=== PATIENT | female | born 1950 | race Caucasian/White ===

== ENCOUNTER 2018-08-18 07:52 | Inpatient (IN) ==
--- NOTE | 2018-07-17 14:06 | PAT Medication Instructions ---
Medication Instructions Date of Service July 17, 2018 Home Medications acetaminophen [Tylenol Extra 1,000 mg PO Q6H PRN albuterol sulfate 2 puff INHALATION Q6H PRN ascorbic acid (vitamin C) [Vitamin 500 mg PO UD fntmfdu-ayyhabean-desu 1 tab PO QAM cholecalciferol (vitamin D3) 1,000 unit PO UD diclofenac sodium 2 g TOPICAL QAM fluticasone propion-salmeterol 1 puff INHALATION Q12H PRN fluticasone propionate [Flonase 2 spray INTRANASAL DAILY PRN folic acid 0.4 mg PO QAM fosinopril 40 mg PO QAM glimepiride 0.5 mg PO QPM glimepiride 1 mg PO QAM indapamide 1.25 mg PO QAM metformin 500 - 1,000 mg PO BID [Hair,Skin and Nails] mv,Ca,min-iron cbxo-JW-nmjvvf tab PO QAM prednisone 5 mg PO QAM tetrahydrozoline [Visine] 1 drp OPHTHALMIC (EYE) TID PRN vitamin B complex 1 cap PO UD STOP taking 2 weeks before surgery (or as soon as possible if surgery is within 2 weeks) [Hair,Skin and Nails] mv,Ca,min-iron pbti-EJ-ciapth tab PO QAM DO NOT take the morning of surgery ascorbic acid (vitamin C) [Vitamin 500 mg PO UD vggzhqe-vxoropcyt-moix 1 tab PO QAM cholecalciferol (vitamin D3) 1,000 unit PO UD folic acid 0.4 mg PO QAM fosinopril 40 mg PO QAM glimepiride 1 mg PO QAM indapamide 1.25 mg PO QAM metformin 500 - 1,000 mg PO BID vitamin B complex 1 cap PO UD Take morning of surgery With a small sip of water, OTHERWISE NOTHING TO EAT OR DRINK AFTER MIDNIGHT: acetaminophen [Tylenol Extra 1,000 mg PO Q6H PRN (okay to take up to 4 hours prior to surgery if needed) albuterol sulfate 2 puff INHALATION Q6H PRN (use if needed; please bring with you to hospital day of surgery if possible) fluticasone propion-salmeterol 1 puff INHALATION Q12H PRN (if needed) fluticasone propionate [Flonase 2 spray INTRANASAL DAILY PRN (if needed) prednisone 5 mg PO QAM tetrahydrozoline [Visine] 1 drp OPHTHALMIC (EYE) TID PRN (if needed) Take evening before surgery acetaminophen [Tylenol Extra 1,000 mg PO Q6H PRN (if needed) albuterol sulfate 2 puff INHALATION Q6H PRN (if needed) fluticasone propion-salmeterol 1 puff INHALATION Q12H PRN (if needed) fluticasone propionate [Flonase 2 spray INTRANASAL DAILY PRN (if needed) glimepiride 0.5 mg PO QPM metformin 500 - 1,000 mg PO BID tetrahydrozoline [Visine] 1 drp OPHTHALMIC (EYE) TID PRN (if needed) Other Notes If you have any questions please call us at [phone] or [phone] or [phone] or [phone]
--- NOTE | 2018-07-20 07:49 | History & Physical Report ---
Date of Service July 20, 2018 Date of Surgery: 08-18-18 Assessment & Plan (1) Tricompartment osteoarthritis of right knee: Risks and benefits of procedure discussed in detail today, patient would like to proceed with a right total knee replacement at [facility] as scheduled. will obtain medical clearance prior to surgery as well as obtain PATs at [facility]. Will place on ASA 81mg po bid x 1 month post op, f/u 2 weeks post op for routine post-operative care and x-ray, sooner if having any problems. will make arrangements for HHPT at the time of discharge. At this point in time, has failed conservative measures and would like to proceed with surgical intervention. History of Present Illness Chief Complaint: right knee pain Primary Care Provider: Rosa Nj Ms Rodríguez is a 67 year old female who complains of right knee pain, presents for pre-op evaluation prior to a right total knee replacement. She presents with pain, crepitus and instability on the right side. She states that the symptoms have been chronic non-traumatic. Currently the patient states that the symptoms are moderate-severe. The pain is described as aching and sometimes sharp. The symptoms occur intermittently. She rates her current pain as 6/10 and worst is 8/10. The symptoms are aggravated by ascending stairs, descending stairs, daily activities, walking and repetitive activities. In addition to right knee pain the patient is also experiencing joint pain, instability and weakness. Patient is ambulating with a cane. she has had prior cortisone injection with minimal relief. she has also tried and failed prior visco series. Allergies Allergy/AdvReac Type Severity Reaction Status Date / Time Qtnlsju-Gbm-Owu Reductase Allergy Unknown MUSCLE Verified 07/15/18 15:27 Inhibitor ACHES Sulfa (Sulfonamide Allergy Unknown HIVES Verified 07/15/18 15:27 Antibiotics) Home Medications Home Medications Medication Instructions Recorded Confirmed Type acetaminophen [Tylenol Extra 1,000 mg PO Q6H PRN 07/15/18 07/15/18 History Strength] albuterol sulfate 2 puff INHALATION Q6H PRN 07/15/18 07/15/18 History ascorbic acid (vitamin C) [Vitamin 500 mg PO UD 07/15/18 07/15/18 History C] mxoofuw-vnrnizjru-yrkk 1 tab PO QAM 07/15/18 07/15/18 History cholecalciferol (vitamin D3) 1,000 unit PO UD 07/15/18 07/15/18 History [Vitamin D3] diclofenac sodium 2 g TOPICAL QAM 07/15/18 07/15/18 History fluticasone propion-salmeterol 1 puff INHALATION Q12H PRN 07/15/18 07/15/18 History [Advair Diskus] fluticasone propionate [Flonase 2 spray INTRANASAL DAILY PRN 07/15/18 07/15/18 History Allergy Relief] folic acid 0.4 mg PO QAM 07/15/18 07/15/18 History fosinopril 40 mg PO QAM 07/15/18 07/15/18 History glimepiride 0.5 mg PO QPM 07/15/18 07/15/18 History glimepiride 1 mg PO QAM 07/15/18 07/15/18 History indapamide 1.25 mg PO QAM 07/15/18 07/15/18 History metformin 500 - 1,000 mg PO BID 07/15/18 07/15/18 History mv,Ca,min-iron otti-OV-vlezng tab PO QAM 07/15/18 History [Hair,Skin and Nails] prednisone 5 mg PO QAM 07/15/18 07/15/18 History tetrahydrozoline [Visine] 1 drp OPHTHALMIC (EYE) TID PRN 07/15/18 07/15/18 History vitamin B complex 1 cap PO UD 07/15/18 07/15/18 History Past Med/Surg History Medical History Arthritis Asthma Chronic steroid use Diabetes mellitus, type 2 Diverticular disease GERD (gastroesophageal reflux disease) H/O Sjogren's disease Hyperlipidemia Hypertension Sleep apnea NO DEVICE Surgical History Fusion of spine LUMBAR History of appendectomy History of section History of total knee replacement LEFT Family History Father Family history of diabetes mellitus Social History Preferred Language: Paraguayan Communication Ability: Effective Watchguard Required: No Beliefs That Will Affect Care: None Current Living Situation: Spouse Other Information That Helps Us Care for You: No Feels Safe at Home: Yes Safety Concerns: Feels Safe At This Time Smoking Status: Never smoker Do You Dip or Chew Tobacco: No Second Hand Exposure: No Hx Alcohol Use: No Hx Substance Use: No Review of Systems Review of Systems: All systems reviewed & are unremarkable except as noted in HPI & below Constitutional: no fever, no chills and no sweats Respiratory: no cough and no dyspnea Cardiovascular: no chest pain, no dyspnea and no orthopnea Gastrointestinal: no abdominal pain, no nausea and no vomiting Musculoskeletal: as per Subjective / HPI Integumentary: no rash Physical Exam Physical Exam: Ht: 5ft 6in Wt: 81.65kg BP: 132/78 Pulse: 82 Constitutional: WD/WN, vitals as above no acute distress Respiratory: normal respiratory effort, lungs clear to auscultation no respiratory distress, no labored breathing and does not use accessory muscles Cardiovascular: RRR, no murmur, no edema Gastrointestinal (Abdomen): normal bowel sounds, soft, nontender, no hepatosplenomegaly Musculoskeletal: Right Knee Exam: Hilaria ambulates with a limp and is using a cane, overall valgus alignment, there is no atrophy or ecchymosis, mild effusion, tenderness greatest over her lateral compartment, negative patellar apprehension , mild crepitation with motion, Patella position neutral, zain's negative, Lori's - lateral positive, Lori's - medial positive, anterior drawer negative, valgus stress negative, varus stress negative, no extensor lag, pain with active range of motion, less pain with passive painful ROM, Range of motion 0/3/115. No pain with active/passive ROM of ankle. Lower extremity strength normal. Lower extremity neuro-vascular is normal Results & Data Diagnostic Findings Right Knee X-ray from August 2017 showing advanced degenerative changes to the right knee, narrowing of the lateral compartment and patello-femoral joint with advanced patellar spurring noted, overal valgus alignment. complete loss of joint space lateral compartment, bone on bone changes with subchondral sclerosis and osteophytes noted. no acute bony pathology noted, no loose bodies.
--- NOTE | 2018-07-20 11:51 | Anesthesiology Consultation ---
Date of Service July 20, 2018 Assessment & Plan (1) Encounter for pre-operative examination: - PCP: 08/13/18: "Patient is medically cleared for surgery." - Check BSG AM DOS Chart Review Chart Review: Acceptable Risk for Surgery and Patient seen in Pre Admission Testing Teaching & Discussion Pre-Anesthesia Teaching/Discussion Notes: Instructed NPO after midnight before surgery,except medications with 15 cc of water. Medication instructions provided according to the PAT guidelines. History Surgery Operation Date: 08/18/18 07:15 Proposed Procedures p Right Total Knee Arthroplasty - Major Borjas DO Height/Weight Height: 5 ft 6 in Weight: 83.2 kg Allergies Allergy/AdvReac Type Severity Reaction Status Date / Time Ygqlskn-Zbm-Zdz Reductase Allergy Unknown MUSCLE Verified 07/15/18 15:27 Inhibitor ACHES Sulfa (Sulfonamide Allergy Unknown HIVES Verified 07/15/18 15:27 Antibiotics) Medications Home Medications Medication Instructions Recorded Confirmed Last Taken acetaminophen [Tylenol Extra 1,000 mg PO Q6H PRN 07/15/18 07/15/18 Unknown Strength] albuterol sulfate 2 puff INHALATION Q6H PRN 07/15/18 07/15/18 Unknown ascorbic acid (vitamin C) [Vitamin 500 mg PO UD 07/15/18 07/15/18 Unknown C] yxmfoeq-qtmsulxli-rnqs 1 tab PO QAM 07/15/18 07/15/18 Unknown cholecalciferol (vitamin D3) 1,000 unit PO UD 07/15/18 07/15/18 Unknown [Vitamin D3] diclofenac sodium 2 g TOPICAL QAM 07/15/18 07/15/18 Unknown fluticasone propion-salmeterol 1 puff INHALATION Q12H PRN 07/15/18 07/15/18 U nknown [Advair Diskus] fluticasone propionate [Flonase 2 spray INTRANASAL DAILY PRN 07/15/18 07/15/18 Unknown Allergy Relief] folic acid 0.4 mg PO QAM 07/15/18 07/15/18 Unknown fosinopril 40 mg PO QAM 07/15/18 07/15/18 Unknown glimepiride 0.5 mg PO QPM 07/15/18 07/15/18 Unknown glimepiride 1 mg PO QAM 07/15/18 07/15/18 Unknown indapamide 1.25 mg PO QAM 07/15/18 07/15/18 Unknown metformin 500 - 1,000 mg PO BID 07/15/18 07/15/18 Unknown mv,Ca,min-iron lftf-QH-nwnilu tab PO QAM 07/15/18 Unknown [Hair,Skin and Nails] prednisone 5 mg PO QAM 07/15/18 07/15/18 Unknown tetrahydrozoline [Visine] 1 drp OPHTHALMIC (EYE) TID PRN 07/15/18 07/15/18 Unknown vitamin B complex 1 cap PO UD 07/15/18 07/15/18 Unknown Past Medical History Medical History Arthritis Asthma STABLE Diabetes mellitus, type 2 NIDDM Diverticular disease GERD (gastroesophageal reflux disease) CONTROLLED History of blood transfusion POST-OP LUMBAR SURGERY Hyperlipidemia Hypertension Sjogren's disease ON CHRONIC PREDNISONE 5MG DAILY* Sleep apnea NO DEVICE Exercise / Class Metabolic Activity II 4-5 Yardwork/Stairs/Walk up hill Past Family History Family History Father Family history of diabetes mellitus Past Surgical History Surgical History Fusion of spine LUMBAR History of appendectomy History of section History of total knee replacement LEFT TKA: 08/13/17: SAB AT L3-L4 + PNB Past Anesthesia History No Hx of Anesthesia Complications and No Family Hx of Anesthesia Complications History of PONV No Hx of PONV and Hx of Motion Sickness Social History Smoking Status: Never smoker Do You Dip or Chew Tobacco: No Hx Alcohol Use: No Hx Substance Use: No Review of Systems Patient denies chest pain, shortness of breath, cough, wheezing, palpitations. Physical Exam Vital Signs VITALS BP 116/75 P 87 TEMP 98.4 SP02 97%RA RESP 20 PHYSICAL Full neck and c-spine range of motion. Full TMJ range of motion. TMD 3 finger breaths Mallampati Score 2 Dentition: upper/lower partials Lungs: clear throughout to auscultation Cardiac: regular rate and rhythm, no murmurs noted Spine: normal Carotid arteries: negative bruit Extremities: no edema Testing Electrocardiogram Date: 07/20/18 Findings: + NSR @ (83) Chest X-Ray Date: 07/20/18 Findings: + NAD Moderate compression deformity T12 considered old. Laboratory Results 07/20/18 12:20 07/20/18 12:25 PT 10.1 Seconds (9.0-12.0) 07/20/18 12:20 INR 1.0 (0.9-1.1) 07/20/18 12:20 APTT 23.9 Seconds (21.0-31.0) 07/20/18 12:20 7.6 % (4.5-5.6) H 07/20/18 12:20 Yellow 07/20/18 12:20 Clear (Clear) 07/20/18 12:20 7.5 (4.5-7.5) 07/20/18 12:20 Ur Specific [place] 1.023 (1.000-1.030) 07/20/18 12:20 Negative (Negative) 07/20/18 12:20 Negative (Negative) 07/20/18 12:20 Negative (Negative) 07/20/18 12:20 Negative (Negative) 07/20/18 12:20 Ur Leukocyte Esterase Negative (Negative) 07/20/18 12:20 Blood Type A Negative 07/20/18 12:20 Antibody Screen NEGATIVE 07/20/18 12:20 Due to header error, following labs header labels were missin07/20/18 HGBA1C 7.6% (Surgeon made aware of elevated hgba1c/glucose.) UA negative
--- NOTE | 2018-07-20 12:50 | XRay Report ---
XR chest Pre-admission PA/Lat CLINICAL HISTORY: pat preoperative evaluation COMPARISON STUDY: No previous studies for comparison. FINDINGS: The bones soft tissues and hemidiaphragms are normal. The cardiomediastinal silhouette is n ormal. The lungs are clear. The pulmonary vasculature is normal. Moderate compression deformity T12 c onsidered old. IMPRESSION: Negative chest. The above report was generated using voice recognition software. It may contain grammatical, syntax or spelling errors. Electronically signed by: Yaya Jefferson M.D. 07/20/2018 12:48 PM
[2018-07-20 13:39] LABS: Basophils # (auto) 0.01 K/uL (0-0.2); Basophils % (auto) 0.2 %; Eosinophils # (auto) 0.02 K/uL (0-0.5); Eosinophils % (auto) 0.4 %; Hematocrit (blood only) 35.6 % (37-47); Hemoglobin 12.4 g/dL (12.0-16.0); Immature Granulocytes # (auto) 0.01 K/uL (0.00-0.02); Immature Granulocytes % (auto) 0.2 %; Lymphocytes % (auto) 17.8 %; Mean Corpuscular Hgb Conc 34.8 g/dL (32-36); Mean Corpuscular Volume 93.2 fL (80-100); Mean Platelet Volume 9.5 fL (7.4-10.4); Monocytes # (auto) 0.27 K/uL (0.11-0.59); Monocytes % (auto) 4.8 %; Neutrophils % (auto) 76.6 %; Platelet Count 213 K/uL (130-400); RDW Coefficient of Variation 13.8 % (11.5-14.5); RDW Standard Deviation 46.9 fL (36.4-46.3); Red Blood Count 3.82 M/uL (4.2-5.4); White Blood Count 5.61 K/uL (4.8-10.8)
[2018-07-20 13:49] LABS: Partial Thromboplastin Ratio 0.9; Partial Thromboplastin Time 23.9 Seconds (21.0-31.0); Prothrombin Time 10.1 Seconds (9.0-12.0)
[2018-07-20 13:54] LABS: Albumin Level 3.5 gm/dl (3.4-5.0); BUN Creatinine Ratio 21.1 (10-20); Creatinine Clr Calc Pharmacy 62.5 ml/min; Est GFR (African American) 71.8; Potassium 3.5 mmol/L (3.5-5.1)
[2018-07-20 13:57] LABS: Estimated Average Glucose 171 mg/dl; Hemoglobin A1C 7.6 % (4.5-5.6)
[2018-07-20 14:02] LABS: Appearance Urine Clear (Clear); Bilirubin Urine Negative (Negative); Blood Urine Negative (Negative); Color Urine Yellow; Glucose Urine UA Negative (Negative); Ketones Urine Negative (Negative); Leukocyte Esterase Urine Negative (Negative); Nitrite Urine Negative (Negative); Protein Urine Negative (Negative); Specific Gravity Urine 1.023 (1.000-1.030); Urobilinogen Urine Negative (Negative); pH Urine 7.5 (4.5-7.5)
[~2018-08-18 07:52] MED LIST: ACETAMINOPHEN 500 MG TAB PO SCH; BUPIVACAINE 0.5 % 5 MG/1 ML PF 10ML VIAL ONE; CEFAZOLIN 2000MG 2,000 MG/15 ML SYR IV SCH; FAMOTIDINE 20 MG TAB PO SCH; GABAPENTIN 300 MG PO SCH; LIDOCAINE HCL 2% 2 ML VIAL/AMP(20MG/ML) INFIL ONE; LR 500ML BOLUS, THEN 15ML/HR IV SCH; METOCLOPRAMIDE HCL 10 MG TABLET PO SCH; MIDAZOLAM HCL 1 MG/ML 2ML VIAL ONE; ONDANSETRON INJ 2 MG/ML 2 ML VIAL ONE; PROPOFOL IV EMULSION 10 MG/ML 20 ML VIAL IV ONE; ROPIVACAINE 0.5% 5 MG/ML 30 ML VIAL ONE; ROPIVACAINE 0.5% HCL/PF 150 MG, BUPIVACAINE 0.5% MPF 30 ML, EPINEPHrine 30MG/30ML (OR U... INFIL SCH; TRANEXAMIC ACID 1,000 MG **IV Intra-op IV SCH; TRANEXAMIC ACID 1,000 MG **IV Pre-op IV SCH; dexAMETHasone 4 MG TAB PO SCH; fentaNYL citrate 100 MCG/2 ML VIAL ONE
--- NOTE | 2018-08-18 08:26 | History & Physical Bridge Note ---
Date of Service August 18, 2018 History & Physical Bridge Note I have examined the patient, reviewed the History & Physical and in the interval since the performance of the History & Physical I have noted the following changes of clinical significance: no changes noted
[2018-08-18] MEDS ORDERED: BACITRACIN INJ 50,000 UNIT VIAL ONE (08:59)
[2018-08-18] MEDS ORDERED: ORTHO JOINT ANESTHETIC ONE (08:59)
[2018-08-18] MEDS ORDERED: ePHEDrine sulfate 50 MG/ML AMP IV PRN (09:22)
[2018-08-18] MEDS ORDERED: fentaNYL citrate 100 MCG/2 ML VIAL IV PRN (09:22)
[2018-08-18] MEDS ORDERED: ATROPINE SULFATE 0.1 MG/ML 10ML SYR IV PRN (09:22)
[2018-08-18] MEDS ORDERED: ONDANSETRON INJ 2 MG/ML 2 ML VIAL IV PRN (09:22)
--- NOTE | 2018-08-18 11:28 | Operative Report ---
Post Operative Report Pre & Post Diagnosis Operation Date: 08/18/18 10:20 Pre-Op Diagnosis: Unilateral Primary Osteoarthritis Right Knee Post-Op Diagnosis: Unilateral Primary Osteoarthritis Right Knee Procedure Operation Date: 08/18/18 10:20 Actual Procedures p Right Total Knee Arthroplasty(Right) utilizing [facility] 2 patient matched total knee arthroplasty size 5 femur 4 tibia 12 constrained poly-32 oval patella- Major Borjas DO Surgeon Major Borjas DO [employer] Yaya CORTEZ Estimated Blood Loss 5 Findings Consistent with Post-Op Diagnosis Patient presents with severe end-stage DJD right knee with valgus alignment of 12 degrees with medial lateral ligaments instability subchondral cystic changes marginal osteophytes eburnated sjwf-kh-akom she is previous undergone left successful total knee arthroplasty she presents today for right total knee arthroplasty the above intraoperative findings were noted Specimens Bone and cartilage Drains Medium bore Hemovac Complications none Disposition Accompanied Patient To Recovery: No Disposition: Recovery Room Indications Patient presents as a very pleasant 60-year-old white female with severe end- stage DJD right knee with valgus alignment she been no response to conservative management including physical therapy anti-inflammatories relative rest bracing corticosteroid injection as well as Visco supplementation presents for right total knee arthroplasty the above intraoperative findings were noted Description of Procedure After proper prepping and draping of the Right lower extremity anterior midline incision was made over the region of the extensor extensor mechanism after meticulous hemostasis was obtained and maintained in subcutaneous tissues a medial parapatellar incision was made The patella was subluxed lateralward the medial lateral gutter were cleaned from any hypertrophic synovitis and scar tissue of the distal femoral block was placed and the distal femoral osteotomy cut was made subsequently the chamfers anterior and posterior osteotomy cuts were made utilizing the 4-in-1 block the tibia was subsequently subluxed anteriorward medial and ateral meniscal remnants were excised in their entirety remnants of the anterior and posterior cruciate ligaments were excised in their entirety excellent exposure of the proximal tibia was obtained the tibial osteotomy guide was placed on the proximal tibial osteotomy cut was made once again the knee was irrigated with copious amounts of sterile saline solution the patella was subsequently everted lateralward thickened scar tissue around the patella was removed the patella was subsequently cut utilizing a freehand technique and was drilled prepared for final preparation and placement of patella socially flexion-extension gaps were checked and the equal and symmetric trials were placed to the appropriate femoral and tibial trials with poly-spacer being placed for equal flexion and extension gaps and full range of motion including extension to 0 and flexion to 140� the trial components after having been taken to recovery range of motion was subsequently removed meticulous h emostasis was obtained and maintained subsequently a knee block injection of joint cocktail including ropivacaine 0.5% 150 mg. Bupivacaine 0.5% epinephrine 1-200,030 mL's toradol 30 mg dexamethasone 4 mg ketamine 10 mg clonidine 100 micrograms normal saline solution 30 mg was infiltrated into the soft tissues of the posterior knee medial lateral gutters and periosteal synovium special attention was paid to protect neurovascular structures at all times subsequently trial components having been removed the knee was irrigated with sterile saline solution. debris was removed the proximal tibia was subsequently prepared and was made ready for the placement of the tibial component tibial component was also cemented and tamped into position the femoral component was subsequently placed and cemented in the position the patellar component was subsequently cemented in position because hemostasis once again obtained and maintained wound having been thoroughly irrigated with debridement and debridement lavage was performed as well as a medial parapatellar incision closed with #1 Vicryl in interrupted fashion subcutaneous was closed with #2 Vicryl skin was closed with skin clips. PA-C was necessary for prepping and drapping as well as wound closure of deep fascia Sub cutaneous tissue and skin and was necessary for the case. A sterile compressive dressing was placed patient was taken to recovery in stable condition of report dictated by [place] I attest to the content of the Intraoperative Record and any orders documented therein. Any exceptions are noted below. I attest to the content of the Intraoperative Record and any orders documented therein. Any exceptions are noted below.
--- NOTE | 2018-08-18 12:51 | XRay Report ---
XR knee RT 2V routine CLINICAL HISTORY: 68 years-old Female presenting with Surgical Post Op. TECHNIQUE: Frontal and lateral views of the right knee were obtained. COMPARISON: None. FINDINGS: Postsurgical changes of total right knee arthroplasty with patellar resurfacing. Expected intra-artic ular and soft tissue emphysema. Surgical drain in place. No periprosthetic fracture or periprosthetic lucency. No malalignment. Possible underlying osteopenia. IMPRESSION: Expected postsurgical appearance status post total right knee arthroplasty with patellar resurfacing. Electronically signed by: Refugio Joshi M.D. 08/18/2018 12:49 PM
--- NOTE | 2018-08-18 12:53 | Anesthesiology Progress Note ---
Date of Service August 18, 2018 Anesthesia Post Procedure Vital Signs Vital Signs: Temp Pulse Resp BP Pulse Ox 08/18/18 12:45 64 20 127/67 100 08/18/18 12:35 63 14 114/65 100 08/18/18 12:25 66 13 121/60 100 08/18/18 12:15 67 13 111/64 100 08/18/18 12:07 97.5 F L 85 15 112/69 100 08/18/18 08:34 98.1 F 73 18 171/87 H 99 Pain Intensity Right Knee: Pain Intensity: 0 Transfer of Care Handoff Completed per policy Notes Mental Status: alert / awake / arousable and participated in evaluation Patient Amnestic to Procedure: Yes Nausea / Vomiting: adequately controlled Pain: adequately controlled Airway Patency, RR, SpO2: stable & adequate BP & HR: stable & adequate Hydration State: stable & adequate Neuraxial Anesthesia: was administered and sensory block is resolving Anesthetic Complications: no major complications apparent and Pt Satisfied with anesthetic care
[2018-08-18] MEDS ORDERED: BISACODYL 10 MG SUPP PR PRN (13:34)
[2018-08-18] MEDS ORDERED: ALUMINUM/MAGNESIUM SUSP 30 ML UDC PO PRN (13:34)
[2018-08-18] MEDS ORDERED: ASCORBIC ACID 500 MG TAB PO SCH (13:34)
[2018-08-18] MEDS ORDERED: HYDROmorphone INJ 1 MG/ML SYRINGE IV PRN (13:34)
[2018-08-18] MEDS ORDERED: VITAMIN B COMPLEX TAB PO SCH (13:34)
[2018-08-18] MEDS ORDERED: ALBUTEROL HFA 8 GM INHALER INH PRN (13:34)
[2018-08-18] MEDS ORDERED: METOCLOPRAMIDE HCL INJ 5 MG/ML 2 ML VIAL IV PRN (13:34)
[2018-08-18] MEDS ORDERED: NALOXONE HCL 0.4 MG/1 ML VIAL/CARP IV PRN (13:34)
[2018-08-18] MEDS ORDERED: NON-FORMULARY MEDICATION (Cholecalciferol (Vitamin D3) [Vitamin D3] 1,000 UNITS) PO SCH (13:34)
[2018-08-18] MEDS ORDERED: FLUTICASONE/SALMETEROL 100/50 (ADVAIR) 14 PUFF/1 INHALER INH PRN (13:34)
[2018-08-18] MEDS ORDERED: FLUTICASONE PROPIONATE NA SPR 16 GM BTL NAE PRN (13:34)
[2018-08-18] MEDS ORDERED: MAGNESIUM HYDROXIDE SUSP 30 ML UDC PO PRN (13:34)
[2018-08-18] MEDS ORDERED: TETRAHYDROZOLINE OP PRN (13:34)
[2018-08-18] MEDS ORDERED: PHARMACY GLYCEMIC MGMT CONSULT PRN (14:12)
[2018-08-18] MEDS: ACETAMINOPHEN 500 MG TAB PO SCH ×2 (14:16→21:02)
[2018-08-18] MEDS ORDERED: GLUCAGON FOR INJ 1 MG VIAL IM PRN (14:30)
[2018-08-18] MEDS ORDERED: CARBOHYDRATES FOR HYPOGLYCEMIA PO PRN (14:30)
[2018-08-18] MEDS ORDERED: DEXTROSE 50% 50 ML SYRINGE IV PRN (14:30)
[2018-08-18] MEDS ORDERED: GLUCOSE 40% GEL 15 GM TUBE PO PRN (14:30)
[2018-08-18] MEDS ORDERED: INSULIN GLARGINE SOLOSTAR 100 UNITS/ML 3 ML PEN SC SCH (14:30)
[2018-08-18] MEDS ORDERED: GLUCOSE 10 TABS/TUBE PO PRN (14:30)
--- NOTE | 2018-08-18 14:33 | Pharmacy Report ---
Pharmacy Glycemic Short Note 2 - Date of Service August 18, 2018 - Glycemic Short BSG Results (Last 24 hours): 08/18/18 08/18/18 08:24 12:10 POC Glucose 123 H 197 H OUTPATIENT ANTIDIABETIC REGIMEN: * Glimepiride 0.5mg PO qPM * Metformin 500-1000mg PO BID * Prednisone 5mg PO daily * HbA1c: 7.6% (07/20/18) ASSESSMENT: * Ms Rodríguez is a 68yo diabetic female POD 0 s/p R TKA with Dr Borjas this morning. * In addition to her chronic home dose of prednisone 5mg, patient also received dexamethasone 8mg and ortho mix containing dexamethasone pre-op this morning. This is expected to contribute to significant steroid-induced hyperglycemia. * Patient was initiated on a SQ basal/bolus insulin regimen post-op in an effort to minimize post-op hyperglycemia to discourage infection and promote wound healing. PLAN FOR INPATIENT GLYCEMIC CONTROL: * Hold outpatient oral diabetes medications * Basal insulin * Lantus 30 units SQ x1 dose post-op * Lantus 0-10 units x1 dose tonight, based on BSGs * Bolus insulin * NovoLog per scale ACHS or Q6hrs while NPO -- will also order accuchecks/coverage for 00 and 04 tonight * Goal Range: Low 110 mg/dL - High 140 mg/dL * Correction Factor: 20 mg/dL/unit * Nutritional / Prandial insulin per carb ratio of 1 unit per 6 grams CHO consumed PLAN FOR DISCHARGE: * Patients recent A1c (7.6%) indicates fairly well-controlled BSGs as an outpatient. * Expect that patient may resume home regimen on discharge, as long as she does not report having episodes of hypoglycemia.
[2018-08-18] MEDS ORDERED: INSULIN ASPART 100 UNITS/ML 3 ML PEN SC SCH (16:30)
[2018-08-18] MEDS ORDERED: INSULIN ASPART 100 UNITS/ML 3 ML PEN SC ONE ×2 (17:45)
[2018-08-18] MEDS: SODIUM CHLORIDE 0.9% 1000ML 1,000 ML IV SCH (17:56)
[2018-08-18] MEDS: KETOROLAC TROMETHAMINE 15 MG/ML VIAL IV SCH ×2 (18:03→23:58)
[2018-08-18] MEDS: CEFAZOLIN 2000MG 2,000 MG/15 ML SYR IV SCH (18:04)
[2018-08-18] MEDS: OXYCODONE HCL IR 5 MG TAB (IMMEDIATE RELEASE) PO PRN (19:15)
[2018-08-18] MEDS: ONDANSETRON INJ 2 MG/ML 2 ML VIAL IV PRN (19:15)
[2018-08-18] MEDS ORDERED: INSULIN GLARGINE SOLOSTAR 100 UNITS/ML 3 ML PEN SC STA (19:46)
[2018-08-18] MEDS: INSULIN ASPART 100 UNITS/ML 3 ML PEN SC SCH (19:58)
[2018-08-18] MEDS ORDERED: INSULIN GLARGINE SOLOSTAR 100 UNITS/ML 3 ML PEN SC ONE (21:00)
[2018-08-18] MEDS: DOCUSATE SODIUM 100 MG CAP PO SCH (21:02)
[2018-08-18] MEDS: ASPIRIN 81 MG ECTAB PO SCH (21:02)
[2018-08-18] MEDS: SENNA 8.6 MG TAB PO SCH (21:02)
[2018-08-19] MEDS ORDERED: INSULIN ASPART 100 UNITS/ML 3 ML PEN SC SCH
[2018-08-19] MEDS: INSULIN ASPART 100 UNITS/ML 3 ML PEN SC SCH ×6 (01:11→21:19)
[2018-08-19] MEDS: CEFAZOLIN 2000MG 2,000 MG/15 ML SYR IV SCH (02:01)
[2018-08-19] MEDS: SODIUM CHLORIDE 0.9% 1000ML 1,000 ML IV SCH (04:22)
[2018-08-19] MEDS: ACETAMINOPHEN 500 MG TAB PO SCH ×3 (05:38→20:59)
[2018-08-19] MEDS: KETOROLAC TROMETHAMINE 15 MG/ML VIAL IV SCH ×2 (05:38→12:53)
[2018-08-19 06:08] LABS: Hematocrit (blood only) 30.4 % (37-47); Hemoglobin 10.3 g/dL (12.0-16.0); Mean Corpuscular Hgb Conc 33.9 g/dL (32-36); Mean Corpuscular Volume 93.3 fL (80-100); Mean Platelet Volume 8.7 fL (7.4-10.4); Platelet Count 158 K/uL (130-400); RDW Coefficient of Variation 13.2 % (11.5-14.5); Red Blood Count 3.26 M/uL (4.2-5.4); White Blood Count 12.18 K/uL (4.8-10.8)
[2018-08-19 06:38] LABS: BUN Creatinine Ratio 28.6 (10-20); Calcium 8.5 mg/dl (8.5-10.1); Creatinine Clr Calc Pharmacy 48.7 ml/min; Est GFR (African American) 53.8; Est GFR (Non-African American) 46.4; Potassium 3.7 mmol/L (3.5-5.1)
--- NOTE | 2018-08-19 07:18 | Anesthesiology Progress Note ---
Date of Service August 19, 2018 Anesthesia Post Procedure Vital Signs Vital Signs: Temp Pulse Pulse Pulse Resp BP Pulse Ox 08/19/18 03:56 36.6 C 67 16 108/64 98 08/18/18 23:26 36.6 C 58 L 16 118/74 98 08/18/18 16:04 36.5 C 70 15 119/76 98 08/18/18 14:50 36.5 C 63 18 122/77 100 08/18/18 13:45 36.6 C 69 14 118/79 98 08/18/18 13:15 36.7 C 64 16 118/77 99 08/18/18 13:00 62 14 121/65 100 08/18/18 12:55 36.4 C L 70 15 113/65 98 08/18/18 12:45 64 20 127/67 100 08/18/18 12:35 63 14 114/65 100 08/18/18 12:25 66 13 121/60 100 08/18/18 12:15 67 13 111/64 100 08/18/18 12:07 36.4 C L 85 15 112/69 100 08/18/18 08:34 36.7 C 73 18 171/87 H 99 Pain Intensity Right Knee: Pain Intensity: 4 Notes Mental Status: alert / awake / arousable and participated in evaluation Nausea / Vomiting: adequately controlled Pain: adequately controlled Airway Patency, RR, SpO2: stable & adequate BP & HR: stable & adequate Hydration State: stable & adequate Neuraxial Anesthesia: sensory block resolved Anesthetic Complications: Pt Satisfied with anesthetic care
--- NOTE | 2018-08-19 08:10 | Orthopedic Progress Note ---
Date of Service August 19, 2018 Assessment & Plan (1) Tricompartment osteoarthritis of right knee: Postop day 1 status post right TKA PT/OT protocols. Weightbearing as tolerated. DVT prophylaxis-aspirin twice daily/SCDs/MEREDITH hose Pain management with acetaminophen, oxycodone, hydromorphone. DC planning-patient is planning for home health services upon discharge. Pt to be seen by Dr Borjas today. Subjective Postop day 1 status post right total knee arthroplasty. Patient is currently sitting up in bed awake and alert. No complaints this morning. Pain is controlled. Denies shortness of breath, chest pain, lightheadedness, calf tenderness. Physical Exam Physical Exam: Dressings are clean, dry, and intact. Calves are soft nontender. Neurovascular intact. Toes are mobile. Minimal drainage from the Hemovac from the previous shift. Results & Data Vital Signs (Past 12 Hours) Vital Signs Temp Pulse Resp BP Pulse Ox 08/19/18 03:56 36.6 C 67 16 108/64 98 08/18/18 23:26 36.6 C 58 L 16 118/74 98 Laboratory Results Laboratory Results WBC 12.18 K/uL (4.8-10.8) H 08/19/18 05:58 RBC 3.26 M/uL (4.2-5.4) L 08/19/18 05:58 Hgb 10.3 g/dL (12.0-16.0) L 08/19/18 05:58 Hct 30.4 % (37-47) L 08/19/18 05:58 MCV 93.3 fL (80-100) 08/19/18 05:58 MCH 31.6 pg (25-34) 08/19/18 05:58 MCHC 33.9 g/dL (32-36) 08/19/18 05:58 RDW Std Deviation 45.0 fL (36.4-46.3) 08/19/18 05:58 RDW Coeff of Precious 13.2 % (11.5-14.5) 08/19/18 05:58 Plt Count 158 K/uL (130-400) 08/19/18 05:58 MPV 8.7 fL (7.4-10.4) 08/19/18 05:58 Immature Gran % (Auto) 0.2 % 07/20/18 12:20 Neut % (Auto) 76.6 % 07/20/18 12:20 Lymph % (Auto) 17.8 % 07/20/18 12:20 [place] % (Auto) 4.8 % 07/20/18 12:20 Eos % (Auto) 0.4 % 07/20/18 12:20 Baso % (Auto) 0.2 % 07/20/18 12:20 Immature Gran # (Auto) 0.01 K/uL (0.00-0.02) 07/20/18 12:20 Neut # (Auto) 4.30 K/uL (1.4-6.5) 07/20/18 12:20 Lymph # (Auto) 1.00 K/uL (1.2-3.4) L 07/20/18 12:20 [place] # (Auto) 0.27 K/uL (0.11-0.59) 07/20/18 12:20 Eos # (Auto) 0.02 K/uL (0-0.5) 07/20/18 12:20 Baso # (Auto) 0.01 K/uL (0-0.2) 07/20/18 12:20 PT 10.1 Seconds (9.0-12.0) 07/20/18 12:20 INR 1.0 (0.9-1.1) 07/20/18 12:20 APTT 23.9 Seconds (21.0-31.0) 07/20/18 12:20 PTT Ratio 0.9 07/20/18 12:20 Sodium 141 mmol/L (136-145) 08/19/18 05:58 Potassium 3.7 mmol/L (3.5-5.1) 08/19/18 05:58 Chloride 108 mmol/L (98-107) H 08/19/18 05:58 Carbon Dioxide 26 mmol/L (21-32) 08/19/18 05:58 Anion Gap 7.0 (3-11) 08/19/18 05:58 BUN 34 mg/dl (7-18) H 08/19/18 05:58 Creatinine 1.20 mg/dl (0.6-1.2) 08/19/18 05:58 Est Cr Clr Drug Dosing 48.7 ml/min 08/19/18 05:58 Est GFR ( Amer) 53.8 08/19/18 05:58 Est GFR (Non-Af Amer) 46.4 08/19/18 05:58 BUN/Creatinine Ratio 28.6 (10-20) H 08/19/18 05:58 Glucose 95 mg/dl (70-99) 08/19/18 05:58 POC Glucose 108 (70-99) H 08/19/18 03:58 Estimat Average Glucose 171 mg/dl 07/20/18 12:20 Hemoglobin A1c 7.6 % (4.5-5.6) H 07/20/18 12:20 Calcium 8.5 mg/dl (8.5-10.1) 08/19/18 05:58 Albumin 3.5 gm/dl (3.4-5.0) 07/20/18 12:25 Urine Color Yellow 07/20/18 12:20 Urine Appearance Clear (Clear) 07/20/18 12:20 Urine pH 7.5 (4.5-7.5) 07/20/18 12:20 Ur Specific [place] 1.023 (1.000-1.030) 07/20/18 12:20 Urine Protein Negative (Negative) 07/20/18 12:20 Urine Glucose (UA) Negative (Negative) 07/20/18 12:20 Urine Ketones Negative (Negative) 07/20/18 12:20 Urine Blood Negative (Negative) 07/20/18 12:20 Urine Nitrite Negative (Negative) 07/20/18 12:20 Urine Bilirubin Negative (Negative) 07/20/18 12:20 Urine Urobilinogen Negative (Negative) 07/20/18 12:20 Ur Leukocyte Esterase Negative (Negative) 07/20/18 12:20 Blood Type A Negative 07/20/18 12:20 Antibody Screen NEGATIVE 07/20/18 12:20
[2018-08-19] MEDS: DOCUSATE SODIUM 100 MG CAP PO SCH ×2 (08:37→20:58)
[2018-08-19] MEDS: ASPIRIN 81 MG ECTAB PO SCH ×2 (08:38→20:58)
[2018-08-19] MEDS: FOLIC ACID 400 MCG TAB PO SCH (08:38)
[2018-08-19] MEDS: MULTIVITAMIN TAB PO SCH (08:39)
[2018-08-19] MEDS: INDAPAMIDE 1.25 MG TAB PO SCH (08:39)
[2018-08-19] MEDS: LISINOPRIL 40 MG TAB PO SCH (08:39)
[2018-08-19] MEDS: predniSONE 5 MG TAB PO SCH (08:39)
[2018-08-19] MEDS: ONDANSETRON INJ 2 MG/ML 2 ML VIAL IV PRN ×2 (08:48→16:49)
[2018-08-19] MEDS: OXYCODONE HCL IR 5 MG TAB (IMMEDIATE RELEASE) PO PRN ×3 (08:48→22:18)
[2018-08-19] MEDS ORDERED: NON-FORMULARY MEDICATION (Calcium-Magnesium-Zinc 1 TAB) PO SCH (09:00)
[2018-08-19] MEDS ORDERED: INSULIN GLARGINE SOLOSTAR 100 UNITS/ML 3 ML PEN SC SCH (09:00)
[2018-08-19] MEDS ORDERED: NON-FORMULARY MEDICATION (Mv,Ca,Min-Iron Gluc-Fa-Biotin [Hair,Skin And Nails] 1 TAB) PO SCH (09:00)
--- NOTE | 2018-08-19 14:47 | Pharmacy Report ---
Pharmacy Glycemic Short Note 2 - Date of Service August 19, 2018 - Glycemic Short BSG Results (Last 24 hours): 08/18/18 08/18/18 08/18/18 17:17 17:19 19:34 Glucose POC Glucose 397 H* 412 H* 400 H* 08/18/18 08/18/18 08/19/18 19:36 23:49 02:02 Glucose POC Glucose 381 H* 111 H 103 H 08/19/18 08/19/18 08/19/18 03:58 05:58 08:08 Glucose 95 POC Glucose 108 H 98 08/19/18 12:06 Glucose POC Glucose 101 H OUTPATIENT ANTIDIABETIC REGIMEN: * Glimepiride 0.5mg PO qPM * Metformin 500-1000mg PO BID * Prednisone 5mg PO daily * HbA1c: 7.6% (07/20/18) ASSESSMENT: 08/19/18: * Patient was significantly hyperglycemic last evening, post-op. This was expected, having received steroids in the OR. * BSGs are much improved today. * Another dose of Lantus was provided this morning. Will re-assess the need to additional doses tomorrow. Expect that the effects of PO dexamethasone should be lessening by then. * Novolog parameters loosened this afternoon, as insulin needs should decrease as the effects of DXM wear off. 08/18/18 * Ms Rodríguez is a 68yo diabetic female POD 0 s/p R TKA with Dr Borjas this morning. * In addition to her chronic home dose of prednisone 5mg, patient also received dexamethasone 8mg and ortho mix containing dexamethasone pre-op this morning. This is expected to contribute to significant steroid-induced hyperglycemia. * Patient was initiated on a SQ basal/bolus insulin regimen post-op in an effort to minimize post-op hyperglycemia to discourage infection and promote wound healing. PLAN FOR INPATIENT GLYCEMIC CONTROL: * Hold outpatient oral diabetes medications * Basal insulin * Lantus 30 units SQ x1 dose this morning * Will provide additional Lantus if needed in the morning * Bolus insulin * NovoLog per scale ACHS or Q6hrs while NPO * Goal Range: Low 110 mg/dL - High 140 mg/dL * Correction Factor: 25 mg/dL/unit * Nutritional / Prandial insulin per carb ratio of 1 unit per 8 grams CHO consumed PLAN FOR DISCHARGE: * Patients recent A1c (7.6%) indicates fairly well-controlled BSGs as an outpatient. * Expect that patient may resume home regimen on discharge, as long as she does not report having episodes of hypoglycemia.
[2018-08-19] MEDS: ONDANSETRON 4 MG TAB PO PRN (20:21)
[2018-08-19] MEDS: SENNA 8.6 MG TAB PO SCH (20:59)
[2018-08-20] MEDS: ONDANSETRON 4 MG TAB PO PRN ×2 (03:48→12:50)
[2018-08-20] MEDS: OXYCODONE HCL IR 5 MG TAB (IMMEDIATE RELEASE) PO PRN ×3 (04:16→12:24)
[2018-08-20] MEDS: ACETAMINOPHEN 500 MG TAB PO SCH (06:15)
--- NOTE | 2018-08-20 07:30 | Orthopedic Progress Note ---
Date of Service August 20, 2018 Assessment & Plan (1) Tricompartment osteoarthritis of right knee: Postop day 2 status post right TKA PT/OT protocols. Weightbearing as tolerated. DVT prophylaxis-aspirin twice daily/SCDs/MEREDITH hose Pain management with acetaminophen, oxycodone, hydromorphone. DC planning-patient is planning for home health services upon discharge after PT today Subjective Postop day 2 status post right total knee arthroplasty. Patient is currently sitting up in bed awake and alert. No complaints this morning. Pain is controlled. Denies shortness of breath, chest pain, lightheadedness, calf tenderness. Physical Exam Physical Exam: Vital Signs Temp Pulse Pulse Pulse Resp BP BP 08/20/18 06:50 36.7 C 67 16 113/73 08/19/18 23:53 36.6 C 68 16 109/68 08/19/18 16:39 36.7 C 64 14 115/73 08/19/18 11:45 36.6 C 62 16 118/60 08/19/18 07:45 36.6 C 54 L 15 112/60 Pulse Ox 08/20/18 06:50 99 08/19/18 23:53 98 08/19/18 16:39 100 08/19/18 11:45 99 08/19/18 07:45 97 Intake and Output 08/19/18 08/20/18 08/20/18 22:59 06:59 14:59 Intake Total 240 / 685 50 / 685 Output Total 75 / 175 Balance 165 / 510 50 / 510 Intake: Oral 240 / 685 50 / 685 Output: Drain Output 75 / 175 Right Knee Hem ovac 75 / 175 Other: # Unmeasured Voi ds 1 1 Constitutional: WD/WN, vitals as above no acute distress Musculoskeletal: NVDI, calf SNT, negative oliver sign. DP palpable, able to wiggle toes/ankle movement without difficulty. VAN dressing clean dry and intact. expected post-operative bruising noted. Psychiatric: A+Ox3, euthymic affect Results & Data Vital Signs (Past 12 Hours) Vital Signs Temp Pulse Pulse Resp BP BP Pulse Ox 08/20/18 06:50 36.7 C 67 16 113/73 99 08/19/18 23:53 36.6 C 68 16 109/68 98 Laboratory Results Laboratory Results WBC 12.18 K/uL (4.8-10.8) H 08/19/18 05:58 RBC 3.26 M/uL (4.2-5.4) L 08/19/18 05:58 Hgb 10.3 g/dL (12.0-16.0) L 08/19/18 05:58 Hct 30.4 % (37-47) L 08/19/18 05:58 MCV 93.3 fL (80-100) 08/19/18 05:58 MCH 31.6 pg (25-34) 08/19/18 05:58 MCHC 33.9 g/dL (32-36) 08/19/18 05:58 RDW Std Deviation 45.0 fL (36.4-46.3) 08/19/18 05:58 RDW Coeff of Precious 13.2 % (11.5-14.5) 08/19/18 05:58 Plt Count 158 K/uL (130-400) 08/19/18 05:58 MPV 8.7 fL (7.4-10.4) 08/19/18 05:58 Immature Gran % (Auto) 0.2 % 07/20/18 12:20 Neut % (Auto) 76.6 % 07/20/18 12:20 Lymph % (Auto) 17.8 % 07/20/18 12:20 [place] % (Auto) 4.8 % 07/20/18 12:20 Eos % (Auto) 0.4 % 07/20/18 12:20 Baso % (Auto) 0.2 % 07/20/18 12:20 Immature Gran # (Auto) 0.01 K/uL (0.00-0.02) 07/20/18 12:20 Neut # (Auto) 4.30 K/uL (1.4-6.5) 07/20/18 12:20 Lymph # (Auto) 1.00 K/uL (1.2-3.4) L 07/20/18 12:20 [place] # (Auto) 0.27 K/uL (0.11-0.59) 07/20/18 12:20 Eos # (Auto) 0.02 K/uL (0-0.5) 07/20/18 12:20 Baso # (Auto) 0.01 K/uL (0-0.2) 07/20/18 12:20 PT 10.1 Seconds (9.0-12.0) 07/20/18 12:20 INR 1.0 (0.9-1.1) 07/20/18 12:20 APTT 23.9 Seconds (21.0-31.0) 07/20/18 12:20 PTT Ratio 0.9 07/20/18 12:20 Sodium 141 mmol/L (136-145) 08/19/18 05:58 Potassium 3.7 mmol/L (3.5-5.1) 08/19/18 05:58 Chloride 108 mmol/L (98-107) H 08/19/18 05:58 Carbon Dioxide 26 mmol/L (21-32) 08/19/18 05:58 Anion Gap 7.0 (3-11) 08/19/18 05:58 BUN 34 mg/dl (7-18) H 08/19/18 05:58 Creatinine 1.20 mg/dl (0.6-1.2) 08/19/18 05:58 Est Cr Clr Drug Dosing 48.7 ml/min 08/19/18 05:58 Est GFR ( Amer) 53.8 08/19/18 05:58 Est GFR (Non-Af Amer) 46.4 08/19/18 05:58 BUN/Creatinine Ratio 28.6 (10-20) H 08/19/18 05:58 Glucose 95 mg/dl (70-99) 08/19/18 05:58 POC Glucose 106 (70-99) H 08/20/18 06:53 Estimat Average Glucose 171 mg/dl 07/20/18 12:20 Hemoglobin A1c 7.6 % (4.5-5.6) H 07/20/18 12:20 Calcium 8.5 mg/dl (8.5-10.1) 08/19/18 05:58 Albumin 3.5 gm/dl (3.4-5.0) 07/20/18 12:25 Urine Color Yellow 07/20/18 12:20 Urine Appearance Clear (Clear) 07/20/18 12:20 Urine pH 7.5 (4.5-7.5) 07/20/18 12:20 Ur Specific [place] 1.023 (1.000-1.030) 05/13/19 12:20 Urine Protein Negative (Negative) 07/20/18 12:20 Urine Glucose (UA) Negative (Negative) 07/20/18 12:20 Urine Ketones Negative (Negative) 07/20/18 12:20 Urine Blood Negative (Negative) 07/20/18 12:20 Urine Nitrite Negative (Negative) 07/20/18 12:20 Urine Bilirubin Negative (Negative) 07/20/18 12:20 Urine Urobilinogen Negative (Negative) 07/20/18 12:20 Ur Leukocyte Esterase Negative (Negative) 07/20/18 12:20 Blood Type A Negative 07/20/18 12:20 Antibody Screen NEGATIVE 07/20/18 12:20 Diagnostic Findings XR knee RT 2V routine CLINICAL HISTORY: 68 years-old Female presenting with Surgical Post Op. TECHNIQUE: Frontal and lateral views of the right knee were obtained. COMPARISON: None. FINDINGS: Postsurgical changes of total right knee arthroplasty with patellar resurfacing. Expected intra-articular and soft tissue emphysema. Surgical drain in place. No periprosthetic fracture or periprosthetic lucency. No malalignment. Possible underlying osteopenia. IMPRESSION: Expected postsurgical appearance status post total right knee arthroplasty with patellar resurfacing.
[2018-08-20] MEDS: ASPIRIN 81 MG ECTAB PO SCH (08:19)
[2018-08-20] MEDS: LISINOPRIL 40 MG TAB PO SCH (08:19)
[2018-08-20] MEDS: DOCUSATE SODIUM 100 MG CAP PO SCH (08:20)
[2018-08-20] MEDS: FOLIC ACID 400 MCG TAB PO SCH (08:20)
[2018-08-20] MEDS: INDAPAMIDE 1.25 MG TAB PO SCH (08:20)
[2018-08-20] MEDS: predniSONE 5 MG TAB PO SCH (08:20)
[2018-08-20] MEDS: MULTIVITAMIN TAB PO SCH (08:20)
[2018-08-20] MEDS: INSULIN ASPART 100 UNITS/ML 3 ML PEN SC SCH (08:22)
--- NOTE | 2018-08-23 07:46 | Discharge Summary ---
Date of Service date of admission: August 18, 2018 date of discharge: 08/20/18 Admission HPI Per Admitting Provider Ms Rodríguez is a 67 year old female who complains of right knee pain, presents for pre-op evaluation prior to a right total knee replacement. She presents with pain, crepitus and instability on the right side. She states that the symptoms have been chronic non-traumatic. Currently the patient states that the symptoms are moderate-severe. The pain is described as aching and sometimes sharp. The symptoms occur intermittently. She rates her current pain as 6/10 and worst is 8/10. The symptoms are aggravated by ascending stairs, descending stairs, daily activities, walking and repetitive activities. In addition to right knee pain the patient is also experiencing joint pain, instability and weakness. Patient is ambulating with a cane. she has had prior cortisone injection with minimal relief. she has also tried and failed prior visco series. Principal Diagnosis right knee osteoarthritis Discharge Exam Vital Signs Temp 36.7 C 08/20/18 08:48 Pulse 67 08/20/18 08:48 Resp 16 08/20/18 08:48 BP 113/73 08/20/18 08:48 Pulse Ox 99 08/20/18 08:48 Musculoskeletal right knee: NVDI, calf SNT, negative oliver sign. DP palpable, able to wiggle toes/ankle movement without difficulty. VAN dressing clean dry and intact. expected post-operative bruising noted. Discharge Data Allergies Allergy/AdvReac Type Severity Reaction Status Date / Time Ryjkopt-Dvy-Riu Reductase Allergy Unknown MUSCLE Verified 08/18/18 08:20 Inhibitor ACHES Sulfa (Sulfonamide Allergy Unknown HIVES Verified 08/18/18 08:20 Antibiotics) Consultations 08/18/18 13:34 Consult Case Management - Discharge Planning Routine Procedures Performed Operation Date: 08/18/18 10:20 Actual Procedures p Right Total Knee Arthroplasty(Right) - Major Borjas DO Ordered Studies 08/18/18 US - OR guided needle placemen Routine Hospital Course (1) Tricompartment osteoarthritis of right knee: Postop day 2 status post right TKA PT/OT protocols. Weightbearing as tolerated. DVT prophylaxis-aspirin twice daily/SCDs/MEREDITH hose Pain management with acetaminophen, oxycodone, hydromorphone. DC planning-patient is planning for home health services upon discharge after PT today Total Time Total Time Spent Total Time Spent (In Minutes): 20 Total Time Includes: Examination of the Patient, Discharge Planning and Med ication Reconciliation Discharge Plan Discharge Items Patient Disposition: Home - Home Health Services Reason For Visit: Unilateral Primary Osteoarthritis Right Knee Discharge Diagnosis: Right Knee Osteoarthritis Condition: Good Discharge Goals: Decrease discomfort and Improve function Activity: Per 'Additional Instructions' section Weightbearing: Right weightbearing Weightbearing Comment: as tolerated with walker Non-emergency contact: Surgeon Call non-emergency contact if: your pain is not controlled, your temperature is above 101.5, your wound has increased redness and your wound has increased drainage Follow-up/Referrals: Rosa Nj PA-C [Primary Care Provider] - Diet: Regular Addtl Provider Instructions: ACTIVITY RECOMMENDATIONS: SELF CARE INSTRUCTIONS AFTER TOTAL KNEE REPLACEMENT A. You may need to continue a physical therapy program after discharge from the hospital. There are several options available to you. Your doctor will assist you in selecting the best one for you. 1. An out-patient facility 2 to 3 times a week for therapy or home therapy. 2. Continue working on all exercises taught to you in the hospital. Your goals should be to increase bending of your knee to 90 degrees and beyond and to fully straighten your knee. B. You may progress at your own pace from walking with a walker or crutches to a cane; then to no assistive devices. C. Make walking a part of your daily routine. Be up as much as comfortable with rest periods throughout the day. Rest with leg elevation is very important. Use the ice wrap frequently for the first 3-4 weeks. D. There are no restrictions on activities. You may ride in a car, shop, participate in hospice massage therapist and all social activities. E. Wear the long elastic stockings (MEREDITH hose) 20 hours a day for 2 weeks after surgery. They can be removed several times a day for laundering and for a bath. F. You may shower, no tub baths until cleared by your doctor. SPECIAL CARE INSTRUCTIONS: VERY IMPORTANT TO READ AND REVIEW A. There are a few signs you need to watch for after you are home. Call [facility] if you notice any of the followin. Increased severe knee pain. Some pain is expected especially when you exercise. 2. Increased swelling in your leg or knee; pain or swelling of the calf muscle in either lower leg. 3. Any fluid drainage from the incision. 4. Shortness of breath or chest pain. B. Please call [facility] at if you have any concerns or questions about your operation or recovery. The doctor or his nurse will return your call promptly. C. You must take antibiotics before dental work, bladder, bowel or other surgery. Your doctor will provide you with a permanent care to carry describing this precaution. IMPORTANT: * REMEMBER TO TAKE ASPIRIN, 81 MG, TWICE DAILY FOR 4 WEEKS UNLESS OTHERWISE DIRECTED. THIS IS YOUR BLOOD THINNER. * HIGH RISK PATIENTS MAY BE PRESCRIBED A STRONGER BLOOD THINNER. THIS WILL BE PROVIDED AT DISCHARGE. * CALL IF INCREASED PAIN, REDNESS, DRAINAGE OR FEVER GREATER THAT 101. * WEAR MEREDITH HOSE 20 HOURS PER DAY FOR 2 WEEKS. * VAN dressing- This is a large suction dressing covering your incision. This will help pull any excess drainage from the wound and allow your incision to heal properly. You may shower with this if you can keep the unit outside of the shower. If any bleeding or leakage is noted please call your doctor's office. This will remain on your incision for 7 days and then should be removed. This can be done yourself or by the home nursing staff if applicable. The entire unit is disposable once removed. Once removed, keep incision clean and dry. If redness or drainage is noted, please call your surgeon. . DERMABOND [place]- This is a mesh tape dressing that is covered with glue. It should remain in place until the incision is properly healed, usually 10-14 days. This dressing is designed to naturally slough off. You may trim the excess mesh tape as it peels off. Incision may be briefly wet in a shower. Dry immediately by blotting with a clean, dry towel. Do not bath or swim until instructed by your doctor. Do not scratch, rub, or pick at the dressing. Do not apply any topical ointments or lotions until dressing is completely removed and/or instructed by your doctor. There may be a small piece of suture material at one end of your incision. Do not pull or trim this. If it is bothersome or catching on clothing, you may cover it with a band-aid. FOLLOW UP VISIT: If appointment is not already scheduled: Please call [facility] to make a follow-up appointment for 2 weeks after your surgery at . Prescriptions: New acetaminophen [Tylenol Extra Strength] 500 mg Tablet 1,000 mg PO Q8 Qty: 60 RF: 0 aspirin [Ecotrin Low Strength] 81 mg Tablet,Delayed Release (Dr/Ec) 81 mg PO BID 30 Days Qty: 60 RF: 0 oxycodone 5 mg Tablet 5 - 10 mg PO Q4H PRN (Reason: pain) Qty: 30 RF: 0 docusate sodium 100 mg Capsule 100 mg PO BID 10 Days Qty: 20 RF: 0 ondansetron HCl 4 mg Tablet 4 mg PO Q6H PRN (Reason: nausea and vomiting) Qty: 20 RF: 0 cefadroxil 500 mg capsule 500 mg PO BID 10 Days Qty: 20 RF: 0 Continued folic acid 400 mcg Tablet 0.4 mg PO QAM RF: 0 ascorbic acid (vitamin C) [Vitamin C] 500 mg Tablet 500 mg PO UD RF: 0 fosinopril 40 mg Tablet 40 mg PO QAM RF: 0 cholecalciferol (vitamin D3) [Vitamin D3] 1,000 unit Capsule 1,000 unit PO UD RF: 0 [id number]-cexsfrlnn-knzo 333-133-5 mg Tablet 1 tab PO QAM RF: 0 metformin 500 mg Tablet 500 - 1,000 mg PO BID RF: 0 prednisone 5 mg Tablet 5 mg PO QAM RF: 0 glimepiride 1 mg Tablet 0.5 mg PO QPM RF: 0 glimepiride 1 mg Tablet 1 mg PO QAM RF: 0 indapamide 1.25 mg Tablet 1.25 mg PO QAM RF: 0 vitamin B complex Capsule 1 cap PO UD RF: 0 Hair,Skin and Nails 1 mg iron-66.7 mcg-1,000 mcg Tablet 1 tab PO QAM RF: 0 tetrahydrozoline [Visine] 0.05 % Drops 1 drp OPHTHALMIC (EYE) TID PRN (Reason: Dry Eyes) RF: 0 fluticasone propionate [Flonase Allergy Relief] 50 mcg/actuation [place],Suspension 2 spray INTRANASAL DAILY PRN (Reason: Congestion) RF: 0 fluticasone propion-salmeterol [Advair Diskus] 100-50 mcg/dose Blister With Device 1 puff INHALATION Q12H PRN (Reason: Wheezing) RF: 0 albuterol sulfate 90 mcg/actuation Hfa Aerosol Inhaler 2 puff INHALATION Q6H PRN (Reason: Wheezing) RF: 0 Discontinued acetaminophen [Tylenol Extra Strength] 500 mg Tablet 1,000 mg PO Q6H PRN (Reason: Pain) RF: 0 diclofenac sodium 1 % Gel 2 g TOPICAL QAM RF: 0 Stand-Alone Forms: [facility], [facility] [place]/Other Patient Handouts: DVT Prevent Discharge Orders: Discharge Order (Routine); Ordered 08/20/18 Ordered By: Yaya Shah Admission Data Admit Date/Time: 08/18/18 13:21 Attending Provider: Major Borjas Admit Provider: Major Borjas Primary Care Provider: Rosa Nj Other Providers: Yaya Shah ; Tania Abreu ; Jules Velasco ; Fredis Espinoza ; Tevin Muse ; Jonn Parekh ; Artie Salazar Service: Surgical Services Other Interventions: Discharge Summary Assessment (RN) Last Done: 08/20/18 08:48 Pending Studies at Discharge: No DC Date/Time DO NOT enter until pt leaves facility: 08/20/18 13:21
== END 2018-08-20 13:21 | disposition home health service (06) ==
LOC: ASU 07:52 → 3E 13:21

== ENCOUNTER 2019-11-29 06:11 | Inpatient (IN) ==
--- NOTE | 2019-11-10 09:10 | PAT Medication Instructions ---
Medication Instructions Date of Service November 10, 2019 Home Medications Hair,Skin and Nails 1 tab PO QAM albuterol sulfate 2 puff INHALATION Q6H PRN ascorbic acid (vitamin C) [Vitamin C] 500 mg PO UD [id number] 1 tab PO QAM cholecalciferol (vitamin D3) [Vitamin D3] 1,000 unit PO UD fluticasone propion-salmeterol [Advair Diskus] 1 puff INHALATION Q12H PRN fluticasone propionate [Flonase Allergy Relief] 2 spray INTRANASAL DAILY PRN folic acid 0.4 mg PO QAM fosinopril 40 mg PO QAM glimepiride 0.5 mg PO QPM glimepiride 1 mg PO QAM indapamide 1.25 mg PO QAM metformin 500 - 1,000 mg PO BID prednisone 5 mg PO QAM tetrahydrozoline [Visine] 1 drp OPHTHALMIC (EYE) TID PRN vitamin B complex 1 cap PO UD acetaminophen [Tylenol Extra Strength] 1,000 mg PO Q8 PRN hydrocodone-acetaminophen 0.5 - 1 tab PO BID PRN STOP taking 2 weeks before surgery (or as soon as possible if surgery is within 2 weeks) Hair,Skin and Nails 1 tab PO QAM DO NOT take the morning of surgery ascorbic acid (vitamin C) [Vitamin C] 500 mg PO UD [id number]-[id number]-[id number] 1 tab PO QAM cholecalciferol (vitamin D3) [Vitamin D3] 1,000 unit PO UD folic acid 0.4 mg PO QAM fosinopril 40 mg PO QAM glimepiride 1 mg PO QAM indapamide 1.25 mg PO QAM metformin 500 - 1,000 mg PO BID vitamin B complex 1 cap PO UD Take morning of surgery With a small sip of water, OTHERWISE NOTHING TO EAT OR DRINK AFTER MIDNIGHT: albuterol sulfate 2 puff INHALATION Q6H PRN (use if needed; please bring with you to hospital day of surgery if possible) fluticasone propion-salmeterol [Advair Diskus] 1 puff INHALATION Q12H PRN (if needed) fluticasone propionate [Flonase Allergy Relief] 2 spray INTRANASAL DAILY PRN (if needed) prednisone 5 mg PO QAM tetrahydrozoline [Visine] 1 drp OPHTHALMIC (EYE) TID PRN (if needed) acetaminophen [Tylenol Extra Strength] 1,000 mg PO Q8 PRN (okay to take up to 4 hours prior to surgery if needed) hydrocodone-acetaminophen 0.5 - 1 tab PO BID PRN (okay to take up to 4 hours prior to surgery if needed) Take evening before surgery albuterol sulfate 2 puff INHALATION Q6H PRN (if needed) fluticasone propion-salmeterol [Advair Diskus] 1 puff INHALATION Q12H PRN (if needed) fluticasone propionate [Flonase Allergy Relief] 2 spray INTRANASAL DAILY PRN (if needed) glimepiride 0.5 mg PO QPM metformin 500 - 1,000 mg PO BID tetrahydrozoline [Visine] 1 drp OPHTHALMIC (EYE) TID PRN (if needed) acetaminophen [Tylenol Extra Strength] 1,000 mg PO Q8 PRN (if needed) hydrocodone-acetaminophen 0.5 - 1 tab PO BID PRN (if needed) Other Notes If you have any questions please call us at [phone] or [phone] or [phone] or [phone]
--- NOTE | 2019-11-11 10:28 | Anesthesiology Consultation ---
Date of Service November 11, 2019 Assessment & Plan (1) Encounter for pre-operative examination: Chart Review Chart Review: Acceptable Risk for Surgery (pending preop Covid testing results ) and Patient seen in Pre Admission Testing - Check BSG AM DOS (did inform surgeon's office of preop glucose and Hgb A1C) Did have UTI after last back surgery - surgery done in [place]- patient did have Wheatley catheter with surgery Per PAT appt on 11/11/19, pt resides and works in [employer]. Travels to [facility] for medical appts and to visit family. Wears mask, uses good hand hygiene and socially distances. No known Covid positive contacts or Covid related symptoms. Educated patient to follow up with surgeon's office regarding Covid testing. Educated on importance of self quarantining, social distancing and wearing mask in public both for the patient and household contacts. Seen by cardio 10/26/19= pt presents for preop cardio clearance. Systolic murmur noted at last office visit- ECHO showed no significant valvular stenosis or regurgitation- mitral and aortic valve mildly degenerated. "We should proceed with her surgery, accepting cardiovascular risk involved. She does not have any cardiac symptoms and no ischemic evaluation is merited." F/u as needed Teaching & Discussion Pre-Anesthesia Teaching/Discussion Notes: Instructed NPO after midnight before surgery,except medications with 15 cc of water. Medication instructions provided according to the [facility] guidelines. History Surgery Operation Date: 11/29/19 07:45 Proposed Procedures p L3-L4 Decompression, L3-L5 Fusion, L4-L5 Hardware Removal, Spinal Cord Monitoring - Eben Elizabeth DO Height/Weight Height: 5 ft 5 in Weight: 85.8 kg Allergies Allergy/AdvReac Type Severity Reaction Status Date / Time Epauivr-Vnj-Tyg Reductase Allergy Unknown MUSCLE Verified 11/03/19 15:40 Inhibitor ACHES Sulfa (Sulfonamide Allergy Unknown HIVES Verified 11/03/19 15:40 Antibiotics) Medications Home Medications Medication Instructions Recorded Confirmed Last Taken Hair,Skin and Nails 1 tab PO QAM 07/15/18 11/03/19 08/16/18 albuterol sulfate 2 puff INHALATION Q6H PRN 07/15/18 11/03/19 Unknown ascorbic acid (vitamin C) [Vitamin 500 mg PO UD 07/15/18 11/03/19 08/11/18 C] jvrqgff-[id number] 1 tab PO QAM 07/15/18 11/03/19 08/11/18 cholecalciferol (vitamin D3) 1,000 unit PO UD 07/15/18 11/03/19 08/11/18 [Vitamin D3] fluticasone propion-salmeterol 1 puff INHALATION Q12H PRN 07/15/18 11/03/19 Unknown [Advair Diskus] fluticasone propionate [Flonase 2 spray INTRANASAL DAILY PRN 07/15/18 11/03/19 Unknown Allergy Relief] folic acid 0.4 mg PO QAM 07/15/18 11/03/19 08/17/18 07:00 fosinopril 40 mg PO QAM 07/15/18 11/03/19 08/17/18 07:00 glimepiride 0.5 mg PO QPM 07/15/18 11/03/19 08/17/18 20:00 glimepiride 1 mg PO QAM 07/15/18 11/03/19 08/17/18 07:00 indapamide 1.25 mg PO QAM 07/15/18 11/03/19 08/17/18 07:00 metformin 500 - 1,000 mg PO BID 07/15/18 11/03/19 08/17/18 20:00 prednisone 5 mg PO QAM 07/15/18 11/03/19 08/18/18 04:30 tetrahydrozoline [Visine] 1 drp OPHTHALMIC (EYE) TID PRN 07/15/18 11/03/19 08/18/18 04:30 vitamin B complex 1 cap PO UD 07/15/18 11/03/19 08/11/18 acetaminophen [Tylenol Extra 1,000 mg PO Q8 PRN 11/03/19 11/03/19 Unknown Strength] hydrocodone-acetaminophen 0.5 - 1 tab PO BID PRN 11/03/19 11/03/19 Unknown Past Medical History Medical History Asthma STABLE Diabetes mellitus, type 2 NIDDM- blood sugars stable GERD (gastroesophageal reflux disease) CONTROLLED History of blood transfusion POST-OP LUMBAR SURGERY Hyperlipidemia Hypertension Neuropathy Bilateral LEs Sjogren's disease ON CHRONIC PREDNISONE 5MG DAILY* Sleep apnea NO DEVICE Exercise / Class Metabolic Activity II 4-5 Yardwork/Stairs/Walk up hill (one flight of stairs- no chest pain or SOB) Past Family History Family History Father Family history of diabetes mellitus Past Surgical History Surgical History Fusion of spine LUMBAR History of appendectomy History of section History of colonoscopy History of surgery on arm LEFT-09/2019 History of total knee replacement LEFT TKA: 08/13/17: SAB AT L3-L4 + PNB History of total knee replacement RIGHT Past Anesthesia History No Hx of Anesthesia Complications and No Family Hx of Anesthesia Complications History of PONV No Hx of PONV and No Hx of Motion Sickness Social History Smoking Status: Never smoker Do You Dip or Chew Tobacco: No Hx Alcohol Use: No Hx Substance Use: No Review of Systems Blood transfusion s/p last lumbar surgery Patient denies chest pain, shortness of breath, dyspnea on exertion, cough, wheezing, palpitations. No hx of seizures, stroke, [place]. No hx of blood clots. Physical Exam Vital Signs VITALS BP 121/78 P 84 TEMP 98.4 SP02 98% RESP 16 Constitutional no acute distress ENMT Mouth: no TMJ clicking Thyromental Distance: > or= 3.5 Finger Breadths (3.5) Mallampati Class: II Partial dentures top and bottom Teeth are delicate due to Sjogrens Neck + limited neck extension (moderate ) Respiratory normal respiratory effort; no respiratory distress Auscultation: lungs clear to auscultation bilaterally; no wheezes Cardiovascular Rate/Rhythm: regular rate and regular rhythm Heart Sounds: + murmur (III/ systolic murmur ) Vessels: no carotid bruit Musculoskeletal Spine: no pain with cervical ROM Neurologic moves all extremities Psychiatric Orientation: alert Testing Laboratory Results 11/11/19 10:49 11/11/19 10:49 PT 10.9 Seconds (9.0-12.0) 11/11/19 10:49 INR 1.0 (0.9-1.1) 11/11/19 10:49 APTT 23.4 Seconds (21.0-31.0) 11/11/19 10:49 Hemoglobin A1c 8.2 % (4.5-5.6) H 11/11/19 10:49 Urine Color Dark Yellow 11/11/19 Unknown Urine Appearance Clear (Clear) 11/11/19 Unknown Urine pH 7.5 (4.5-7.5) 11/11/19 Unknown Ur Specific [place] 1.020 (1.000-1.030) 11/11/19 Unknown Urine Protein Negative (Negative) 11/11/19 Unknown Urine Glucose (UA) Negative (Negative) 11/11/19 Unknown Urine Ketones Negative (Negative) 11/11/19 Unknown Urine Nitrite Negative (Negative) 11/11/19 Unknown Ur Leukocyte Esterase Negative (Negative) 11/11/19 Unknown Blood Type A Negative 11/11/19 10:49 Antibody Screen NEGATIVE 11/11/19 10:49 Electrocardiogram Date: 10/05/19 SR at 88 bpm. Poor R wave progression. Chest X-Ray Date: 11/11/19 Findings: + NAD Echocardiogram Date: 10/26/19 EF: 60-65% LV Function: normal RWMA: + none Valvular Disease: + no significant valvular disease
[2019-11-11 11:11] LABS: Basophils # (auto) 0.02 K/uL (0-0.2); Basophils % (auto) 0.4 %; Eosinophils # (auto) 0.19 K/uL (0-0.5); Eosinophils % (auto) 3.5 %; Hematocrit (blood only) 36.9 % (37-47); Hemoglobin 12.4 g/dL (12.0-16.0); Immature Granulocytes # (auto) 0.02 K/uL (0.00-0.02); Immature Granulocytes % (auto) 0.4 %; Lymphocytes # (auto) 0.64 K/uL (1.2-3.4); Lymphocytes % (auto) 11.6 %; Mean Corpuscular Hemoglobin 30.8 pg (25-34); Mean Corpuscular Hgb Conc 33.6 g/dL (32-36); Mean Corpuscular Volume 91.8 fL (80-100); Mean Platelet Volume 9.4 fL (7.4-10.4); Monocytes # (auto) 0.36 K/uL (0.11-0.59); Monocytes % (auto) 6.5 %; Neutrophils # (auto) 4.27 K/uL (1.4-6.5); Neutrophils % (auto) 77.6 %; Platelet Count 180 K/uL (130-400); RDW Coefficient of Variation 13.6 % (11.5-14.5); Red Blood Count 4.02 M/uL (4.2-5.4)
[2019-11-11 11:12] LABS: Appearance Urine Clear (Clear); Bilirubin Urine Negative (Negative); Blood Urine Negative (Negative); Color Urine Dark Yellow; Glucose Urine UA Negative (Negative); Ketones Urine Negative (Negative); Leukocyte Esterase Urine Negative (Negative); Nitrite Urine Negative (Negative); Protein Urine Negative (Negative); Urobilinogen Urine Negative (Negative); pH Urine 7.5 (4.5-7.5)
--- NOTE | 2019-11-11 11:20 | XRay Report ---
XR chest Pre-admission PA/Lat HISTORY: 69 years-old Female pat preoperative exam. No acute chest complaints COMPARISON: Chest radiograph 07/20/2018 TECHNIQUE: PA and lateral views of the chest FINDINGS: Cardiomediastinal and hilar silhouettes are within normal limits. There is no pneumothorax, pleural e ffusion, airspace consolidation or overt pulmonary edema. Bones of the chest appear grossly intact. P artially imaged lumbar spine fusion hardware. Remote thoracolumbar compression deformities. IMPRESSION: No acute process. ACT 112: Negative or not required by law. The above report was generated using voice recognition software. It may contain grammatical, syntax o r spelling errors. Electronically signed by: Atif Hassan M.D. 11/11/2019 11:18 AM
[2019-11-11 11:32] LABS: Partial Thromboplastin Ratio 0.8; Partial Thromboplastin Time 23.4 Seconds (21.0-31.0); Prothrombin Time 10.9 Seconds (9.0-12.0)
[2019-11-11 14:14] LABS: BUN Creatinine Ratio 19.1 (10-20); Calcium 9.6 mg/dl (8.5-10.1); Creatinine Clr Calc Pharmacy 63.1 ml/min; Est GFR (African American) 74.6; Est GFR (Non-African American) 64.4; Potassium 3.6 mmol/L (3.5-5.1)
[2019-11-12 06:30] LABS: Estimated Average Glucose 189 mg/dl; Hemoglobin A1C 8.2 % (4.5-5.6)
[~2019-11-29 06:11] MED LIST changes: -BUPIVACAINE 0.5 % 5 MG/1 ML PF 10ML VIAL ONE; +CeleBREX 200 MG CAP PO SCH; -FAMOTIDINE 20 MG TAB PO SCH; +GABAPENTIN 300 MG CAP PO SCH; -GABAPENTIN 300 MG PO SCH; -LIDOCAINE HCL 2% 2 ML VIAL/AMP(20MG/ML) INFIL ONE; +LR 15ML/HR IV SCH; -LR 500ML BOLUS, THEN 15ML/HR IV SCH; +LR 60ML/HR IV SCH; -METOCLOPRAMIDE HCL 10 MG TABLET PO SCH; -MIDAZOLAM HCL 1 MG/ML 2ML VIAL ONE; -ONDANSETRON INJ 2 MG/ML 2 ML VIAL ONE; -PROPOFOL IV EMULSION 10 MG/ML 20 ML VIAL IV ONE; -ROPIVACAINE 0.5% 5 MG/ML 30 ML VIAL ONE; -ROPIVACAINE 0.5% HCL/PF 150 MG, BUPIVACAINE 0.5% MPF 30 ML, EPINEPHrine 30MG/30ML (OR U... INFIL SCH; -TRANEXAMIC ACID 1,000 MG **IV Intra-op IV SCH; -TRANEXAMIC ACID 1,000 MG **IV Pre-op IV SCH; -dexAMETHasone 4 MG TAB PO SCH; -fentaNYL citrate 100 MCG/2 ML VIAL ONE
[2019-11-29] MEDS ORDERED: fentaNYL citrate 100 MCG/2 ML VIAL ONE (06:55)
[2019-11-29] MEDS ORDERED: MIDAZOLAM HCL 1 MG/ML 2ML VIAL ONE (06:55)
[2019-11-29] MEDS ORDERED: BACITRACIN INJ 50,000 UNIT VIAL ONE (07:01)
[2019-11-29] MEDS ORDERED: PROPOFOL IV EMULSION 10 MG/ML 20 ML VIAL IV ONE (07:01)
[2019-11-29] MEDS ORDERED: LIDOCAINE HCL 2% 2 ML VIAL/AMP(20MG/ML) INFIL ONE (07:01)
[2019-11-29] MEDS ORDERED: BUPIVACAINE/EPINEPHRINE 0.25% 1:200,000 30 ML VIAL ONE (07:01)
[2019-11-29] MEDS ORDERED: ROCURONIUM BROMIDE 10 MG/ML 5 ML VIAL IV ONE (07:01)
[2019-11-29] MEDS ORDERED: ONDANSETRON INJ 2 MG/ML 2 ML VIAL ONE (07:02)
--- NOTE | 2019-11-29 07:30 | History & Physical Bridge Note ---
Date of Service November 29, 2019 History & Physical Bridge Note I have examined the patient, reviewed the History & Physical and in the interval since the performance of the History & Physical I have noted the following changes of clinical significance: no changes noted
--- NOTE | 2019-11-29 07:31 | History & Physical Report ---
Date of Service November 29, 2019 Assessment & Plan Admission and Anticipated Discharge Date Admission Date: L3-L4 decompression, L3 L5 fusion, L4-L5 hardware removal History of Present Illness Chief Complaint: Back and leg pain Primary Care Provider: El Treadwell This is a 69-year-old female who presents with chronic persistent back and leg pain. After failing extensive course of nonoperative care she is here for surgical intervention. Allergies Allergy/AdvReac Type Severity Reaction Status Date / Time Wffbeov-Fqx-Iqo Reductase Allergy Intermediate MUSCLE Verified 11/29/19 06:29 Inhibitor ACHES Sulfa (Sulfonamide Allergy Mild HIVES Verified 11/29/19 06:29 Antibiotics) Home Medications Home Medications Medication Instructions Recorded Confirmed Type Hair,Skin and Nails 1 tab PO QAM 07/15/18 11/29/19 History albuterol sulfate 2 puff INHALATION Q6H PRN 07/15/18 11/29/19 History ascorbic acid (vitamin C) [Vitamin 500 mg PO UD 07/15/18 11/29/19 History C] ttlvanj-ednxmijpy-izgz 1 tab PO QAM 07/15/18 11/29/19 History cholecalciferol (vitamin D3) 1,000 unit PO UD 07/15/18 11/29/19 History [Vitamin D3] fluticasone propion-salmeterol 1 puff INHALATION Q12H PRN 07/15/18 11/29/19 History [Advair Diskus] fluticasone propionate [Flonase 2 spray INTRANASAL DAILY PRN 07/15/18 11/29/19 History Allergy Relief] folic acid 0.4 mg PO QAM 07/15/18 11/29/19 History fosinopril 40 mg PO QAM 07/15/18 11/29/19 History glimepiride 0.5 mg PO QPM 07/15/18 11/29/19 History glimepiride 1 mg PO QAM 07/15/18 11/29/19 History indapamide 1.25 mg PO QAM 07/15/18 11/29/19 History metformin 500 - 1,000 mg PO BID 07/15/18 11/29/19 History prednisone 5 mg PO QAM 07/15/18 11/29/19 History tetrahydrozoline [Visine] 1 drp OPHTHALMIC (EYE) TID PRN 07/15/18 11/29/19 History vitamin B complex 1 cap PO UD 07/15/18 11/29/19 History acetaminophen [Tylenol Extra 1,000 mg PO Q8 PRN 11/03/19 11/29/19 History Strength] hydrocodone-acetaminophen 0.5 - 1 tab PO BID PRN 11/03/19 11/29/19 History empagliflozin [Jardiance] 10 mg PO DAILY 11/29/19 11/29/19 History Past Med/Surg History Medical History Asthma STABLE Diabetes mellitus, type 2 NIDDM- blood sugars stable GERD (gastroesophageal reflux disease) CONTROLLED History of blood transfusion POST-OP LUMBAR SURGERY Hyperlipidemia Hypertension Neuropathy Bilateral LEs Sjogren's disease ON CHRONIC PREDNISONE 5MG DAILY* Sleep apnea NO DEVICE Surgical History Fusion of spine LUMBAR History of appendectomy History of section History of colonoscopy History of surgery on arm LEFT-09/2019 History of total knee replacement LEFT TKA: 08/13/17: SAB AT L3-L4 + PNB History of total knee replacement RIGHT Family History Father Family history of diabetes mellitus Social History Smoking Status: Never smoker Second Hand Exposure: No; Do You Dip or Chew Tobacco: No; Hx Alcohol Use: No Hx Substance Use: No Preferred Language: Greenlandic Communication Ability: Effective 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 Heart regular rate and rhythm. Lungs are clear to auscultation. Results & Data ([facility]) Vital Signs (Past 12 Hours) Vital Signs Temp Pulse Resp BP Pulse Ox 11/29/19 06:51 37.1 C 92 H 20 123/76 97
[2019-11-29] MEDS ORDERED: INSULIN HUMAN REGULAR PER UNIT 2 UNITS in SYRINGE 0 ML IV STA (07:36)
[2019-11-29] MEDS ORDERED: INSULIN HUMAN REGULAR PER UNIT 2 UNITS in SYRINGE 1.98 ML IV STA (07:38)
[2019-11-29] MEDS ORDERED: fentaNYL citrate 100 MCG/2 ML VIAL IV PRN (08:19)
[2019-11-29] MEDS ORDERED: HYDROmorphone INJ 1 MG/ML SYRINGE IV PRN ×2 (08:19→10:49)
[2019-11-29] MEDS ORDERED: ONDANSETRON INJ 2 MG/ML 2 ML VIAL IV PRN (08:19)
[2019-11-29] MEDS ORDERED: ePHEDrine sulfate 50 MG/ML AMP IV PRN (08:19)
[2019-11-29] MEDS ORDERED: ATROPINE SULFATE 0.1 MG/ML 10ML SYR IV PRN (08:19)
[2019-11-29] MEDS ORDERED: DEXAMETHASONE SOD INJ 4 MG/ML VIAL ONE ×2 (08:25→08:26)
[2019-11-29] MEDS ORDERED: FLOSEAL HEMOSTATIC MATRIX 10ML TOP ONE (08:27)
[2019-11-29] MEDS ORDERED: GLYCOPYRROLATE 0.2 MG/ML VIAL ONE (08:28)
[2019-11-29] MEDS ORDERED: NEOSTIGMINE METHYLSULFATE 1 MG/ML 10ML VIAL ONE (08:28)
[2019-11-29] MEDS ORDERED: PHENYLEPHRINE 100MCG/ML 5ML SYR ONE (08:46)
[2019-11-29] MEDS ORDERED: ePHEDrine sulfate 50 MG/ML SYR ONE (08:46)
--- NOTE | 2019-11-29 09:29 | Operative Report ---
Post Operative Report Pre & Post Diagnosis Operation Date: 11/29/19 07:45 Pre-Op Diagnosis: Lumbar Spinal Stenosis with Neurogenic Claudication Post-Op Diagnosis: Lumbar Spinal Stenosis with Neurogenic Claudication I identified the patient and participated in the time-out.: Yes Procedure Operation Date: 11/29/19 07:45 Actual Procedures #1 removal of instrumentation L4-L5. #2 exploration of fusion L4-5. #3 lumbar decompression with bilateral medial facetectomies and foraminotomies L2-3 and L3-4. #4 posterior spinal fusion L3-4. #5 placement posterior instrumentation L3-4 L4-5. #6 placement locally harvested morselized autograft in the posterior gutters. #7 placement infuse collagen sponge and master graft in the posterior lateral gutters. Surgeon Eben Elizabeth, Fractionating Still Operator Edita Berger Estimated Blood Loss 100 Findings Consistent with Post-Op Diagnosis Specimens None Indications This is a 69-year-old female who presents above-mentioned diagnosis after failing course of nonoperative care is here for surgical intervention. Description of Procedure Patient was met with identified informed consent obtained. Patient was then taken to the operative suite underwent intubation placed in a prone position on the Ben table on top of the Anthony frame. All bony prominences well-padded eyes inspected to ensure no external pressure placed upon them. This point the lumbar spine was prepped and draped in a sterile fashion. Sharp dissection with the assistance of Bovie cautery was performed down to and exposing the lamina and transverse processes of L3 and instrumentation at L4 and L5 bilaterally. And then proceeded to move the hardware at L4-L5 bilaterally explore the fusion mass noting it to be intact. I then performed a complete laminectomy of L3 partial laminectomy of L2 including bilateral medial facetectomies and foraminotomies addressing severe spinal stenosis. Pedicle screws were then placed in L3 and L4 and L5 bilaterally with assistance of fluoroscopy and the proper size mario locked into position. The transverse processes of L3 and L4 were then burred to subcortical bleeding bone. Infuse collagen sponge and master graft local autograft was placed in the posterior lateral gutters. 15 round FABIOLA drain inserted. The incision was then closed with 1 Vicryl in the fascia 2-0 Vicryl subcutaneously and 4 Monocryl for final skin closure. Steri- Strip sterile dressings placed. Patient waken taken PACU stable addition. Please note spinal cord monitoring visualized at the procedure no changes noted. Lastly Edita Berger was present throughout the entire surgery involved the patient positioning complex portions of the surgery and final skin closure. I attest to the content of the Intraoperative Record and any orders documented therein. Any exceptions are noted below.
--- NOTE | 2019-11-29 09:45 | Fluoroscopy Report ---
FL lumbar spine 2-3V CLINICAL HISTORY: L3-L4 DECOMPRESSION, L3-L5 FUSION, L4-L5 HARDWARE REMOVAL COMPARISON STUDY: None. FLUOROSCOPY TIME: 12 seconds. FINDINGS: 2 fluoroscopic spot images of the lumbar spine demonstrate L3-L5 posterior decompression an d fusion with pedicle screws and rods. The hardware appears intact. IMPRESSION: Fluoroscopy provided for a L3-L5 posterior decompression and fusion ACT 112: Negative or not required by law. Electronically signed by: Jonn Hairston M.D. 11/29/2019 9:44 AM
[2019-11-29] MEDS ORDERED: SOD PHOSPHATE/SOD BIPHOSPHATE ENEMA 132 ML BTL PR PRN (10:49)
[2019-11-29] MEDS ORDERED: PROMETHAZINE HCL 12.5 MG in SODIUM CHLORIDE 0.9% 50 ML IV PRN (10:49)
[2019-11-29] MEDS ORDERED: FLUTICASONE PROPIONATE NA SPR 16 GM BTL PRN (10:49)
[2019-11-29] MEDS ORDERED: DO NOT ADMINISTER FLU VACCINE PRN (10:49)
[2019-11-29] MEDS ORDERED: METOCLOPRAMIDE HCL INJ 5 MG/ML 2 ML VIAL IV PRN (10:49)
[2019-11-29] MEDS ORDERED: MAGNESIUM HYDROXIDE SUSP 30 ML UDC PO PRN (10:49)
[2019-11-29] MEDS ORDERED: FAMOTIDINE 20 MG TAB PO PRN (10:49)
[2019-11-29] MEDS ORDERED: bisacodyL 10 MG SUPP PR PRN (10:49)
[2019-11-29] MEDS ORDERED: LORazepam 0.5 MG/1 ML VIAL IV PRN (10:49)
[2019-11-29] MEDS ORDERED: ALUMINUM/MAGNESIUM SUSP 30 ML UDC PO PRN (10:49)
[2019-11-29] MEDS ORDERED: ACETAMINOPHEN 500 MG TAB PO PRN (10:49)
[2019-11-29] MEDS ORDERED: LORazepam 0.5 MG TAB PO PRN (10:49)
[2019-11-29] MEDS ORDERED: TRAMADOL HCL 50 MG TABLET PO PRN (10:49)
[2019-11-29] MEDS ORDERED: DO NOT ADMINISTER PNEUMOCOCCAL VACCINE PRN (10:49)
[2019-11-29] MEDS ORDERED: NALOXONE HCL 0.4 MG/1 ML VIAL/CARP IV PRN (10:49)
[2019-11-29] MEDS ORDERED: HYDROmorphone INJ 0.5 MG/0.5 ML SYR IV PRN (10:49)
[2019-11-29] MEDS ORDERED: ALBUTEROL HFA 8 GM INHALER INH PRN (10:49)
[2019-11-29] MEDS ORDERED: ONDANSETRON 4 MG OD TAB PO PRN (10:49)
--- NOTE | 2019-11-29 11:06 | Anesthesiology Progress Note ---
Date of Service November 29, 2019 Anesthesia Post Procedure Vital Signs Vital Signs: Temp Pulse Pulse Resp BP BP Pulse Ox 11/29/19 11:00 60 16 103/63 98 11/29/19 10:25 63 16 122/60 99 11/29/19 10:15 36.5 C 69 16 123/61 99 11/29/19 10:05 70 16 130/64 99 11/29/19 09:55 78 16 133/66 100 11/29/19 09:46 36.3 C L 86 16 148/89 H 100 11/29/19 06:51 37.1 C 92 H 20 123/76 97 Pain Intensity Lower Back: Pain Intensity: 4 Transfer of Care Handoff Completed per policy Notes Mental Status: alert / awake / arousable and participated in evaluation Patient Amnestic to Procedure: Yes Nausea / Vomiting: adequately controlled Pain: adequately controlled Airway Patency, RR, SpO2: stable & adequate BP & HR: stable & adequate Hydration State: stable & adequate Anesthetic Complications: no major complications apparent and Pt Satisfied with anesthetic care
[2019-11-29] MEDS ORDERED: ARTIFICIAL TEARS OP PRN (11:10)
[2019-11-29] MEDS ORDERED: PHARMACY GLYCEMIC MGMT CONSULT PRN (11:15)
[2019-11-29] MEDS ORDERED: DEXTROSE 50% 50 ML SYRINGE IV PRN ×2 (11:30→11:49)
[2019-11-29] MEDS ORDERED: GLUCOSE 10 TABS/TUBE PO PRN ×2 (11:30→11:49)
[2019-11-29] MEDS ORDERED: CARBOHYDRATES FOR HYPOGLYCEMIA PO PRN ×2 (11:30→11:49)
[2019-11-29] MEDS ORDERED: GLUCOSE 40% GEL 15 GM TUBE PO PRN ×2 (11:30→11:49)
[2019-11-29] MEDS ORDERED: GLUCAGON FOR INJ 1 MG VIAL IM PRN (11:30)
[2019-11-29] MEDS ORDERED: GLUCAGON FOR INJ 1 MG VIAL SQ PRN (11:49)
--- NOTE | 2019-11-29 11:57 | Consultation ---
Date of Consultation November 29, 2019 Assessment & Plan (1) Neurogenic claudication due to lumbar spinal stenosis: Status post lumbar decompression fusion L3-L5 by Dr. Elizabeth POD #0 EBL 100 mL; FABIOLA drain 40 mL Tolerated procedure well, drowsy postop Pain/wound management per Ortho Activity and therapy as directed by Ortho Encourage incentive spirometry and wean O2 as able Monitor H&H (2) Diabetes mellitus, type 2: Last A1c 8.0 11/11/2019 Glycemic pharmacy on board, appreciate their management Outpatient regimen of metformin, Jardiance and glimepiride (3) Hypertension: Pressure on low side postoperatively 106/64 Hold lisinopril and indapamide, reevaluate in a.m. if okay to resume (4) Seronegative polyarthritis: Follows [facility] rheumatology Continue daily prednisone Receive stress dose steroid preoperatively dexamethasone 8 mg Resume daily prednisone tomorrow (5) Asthma: continue advair no acute exac (6) DVT prophylaxis: Per primary Follow up: PCP Dr. Treadwell upon discharge Pt was seen and examined in collaboration with Dr. Manriquez, please see addendum Starting 11/30/2019 pt will be under the care of Dr. Portillo Thank you for this consultation. We will follow the patient with you during their hospital stay. You [facility] via pager @ [phone]. Supervising Physician Co-Signing Physician Notes I saw this patient with the physician news production assistant, I participated in the history, physical, review of systems, and physical exam. I reviewed the medications with the patient and the physician news production assistant and helped reconcile the medications. I helped take a detailed family and social history as well. I formulated the assessment and plan personally with the physician news production assistant and went over it with the patient. Physical Exam Gen-AAO x 3, NAD, Afebrile, pleasant Head-NCAT, EOMI, PERRLA, Anicteric Sclera, No Posterior Pharyngeal Erythema Neck-Supple, No JVD, No Thyromegaly, No Masses, No LAD, No Bruits Lungs-Clear to Auscultation Bilaterally, No Rales, No Rhonchi, No Wheezing, No Crepitus Chest-No S4, +S1, +S2, No S3, No Murmurs, No Rubs, No Gallops, No Ectopy Abdomen-Soft, Bowel Sounds Present, Non Tender, Non Distended, No Hepatomegaly, No Splenomegaly, No Palpable Masses, No Rebound, No Rigidity, No Guarding Musculoskeletal-Full Range of Motion Bilaterally, No CVAT, Back Drain Extremities-No Cyanosis, No Clubbing, No Edema Nuero-Cranial Nerves II-XII grossly intact, Motor WNL, DTRs WNL, Strength WNL, Non Focal Psych-Normal Mood History of Present Illness Requesting Physician: Dr. Elizabeth Reason for Consultation: Postop medical m anagement Attending Physician: Eben Elizabeth, DO History of Present Illness This is a 69-year-old female who has significant past medical history of T2DM, HTN, asthma, Sjogren's, seronegative polyarthritis on chronic prednisone therapy who presents for elective lumbar procedure by Dr. Elizabeth. is at bedside. We have been consulted for postop medical management. Patient is very drowsy but does awaken and answer questions appropriately to verbal stimulation. Currently she complains of burning incisional low back pain. Pain is nonradiating and rated approximately a 8 out of 10. According to nursing staff patient has been complaining of pain since in PACU; however, patient rates her pain 8/10 but immediately falls right back asleep and staff does not feel comfortable administering pain medication. She denies any current fever, chills, sweats, lightheadedness, dizziness, chest pain, shortness of breath, nausea, vomiting, abdominal pain. Prior to procedure she denies any difficulty passing urine or moving bowels. Prior to procedure she ambulate with a cane. "I just need something for my pain. "Patient is a type II diabetic on glimepiride and metformin as outpatient. Last A1c was 8.2 on 11/11/2019. She also has chronic seronegative polyarthritis when she follows with [facility] rheumatology. She is on chronic prednisone therapy. She states she did not take any morning medications today including prednisone. According to nurse she did receive 8 mg of IV dexamethasone preoperatively. Allergies Allergy/AdvReac Type Severity Reaction Status Date / Time Ckrsual-Qma-Mfd Reductase Allergy Intermediate MUSCLE Verified 11/29/19 06:29 Inhibitor ACHES Sulfa (Sulfonamide Allergy Mild HIVES Verified 11/29/19 06:29 Antibiotics) Home Medications Home Medications Medication Instructions Recorded Confirmed Type Hair,Skin and Nails 1 tab PO QAM 07/15/18 11/29/19 History albuterol sulfate 2 puff INHALATION Q6H PRN 07/15/18 11/29/19 History ascorbic acid (vitamin C) [Vitamin 500 mg PO UD 07/15/18 11/29/19 History C] urvfeoa-pxtioanbi-swnk 1 tab PO QAM 07/15/18 11/29/19 History cholecalciferol (vitamin D3) 1,000 unit PO UD 07/15/18 11/29/19 History [Vitamin D3] fluticasone propion-salmeterol 1 puff INHALATION Q12H PRN 07/15/18 11/29/19 History [Advair Diskus] fluticasone propionate [Flonase 2 spray INTRANASAL DAILY PRN 07/15/18 11/29/19 History Allergy Relief] folic acid 0.4 mg PO QAM 07/15/18 11/29/19 History fosinopril 40 mg PO QAM 07/15/18 11/29/19 History glimepiride 0.5 mg PO QPM 07/15/18 11/29/19 History glimepiride 1 mg PO QAM 07/15/18 11/29/19 History indapamide 1.25 mg PO QAM 07/15/18 11/29/19 History metformin 500 - 1,000 mg PO BID 07/15/18 11/29/19 History prednisone 5 mg PO QAM 07/15/18 11/29/19 History tetrahydrozoline [Visine] 1 drp OPHTHALMIC (EYE) TID PRN 07/15/18 11/29/19 History vitamin B complex 1 cap PO UD 07/15/18 11/29/19 History acetaminophen [Tylenol Extra 1,000 mg PO Q8 PRN 11/03/19 11/29/19 History Strength] hydrocodone-acetaminophen 0.5 - 1 tab PO BID PRN 11/03/19 11/29/19 History empagliflozin [Jardiance] 10 mg PO DAILY 11/29/19 11/29/19 History Patient History Medical History (Updated 11/29/19 @ 12:18 by Kaylah Jarvis PA-C) Asthma STABLE Diabetes mellitus, type 2 NIDDM- blood sugars stable GERD (gastroesophageal reflux disease) CONTROLLED History of blood transfusion POST-OP LUMBAR SURGERY Hx of Lyme disease Hyperlipidemia Hypertension Neuropathy Bilateral LEs Seronegative polyarthritis Sjogren's disease ON CHRONIC PREDNISONE 5MG DAILY* Sleep apnea NO DEVICE Surgical History Fusion of spine LUMBAR History of appendectomy History of section History of colonoscopy History of surgery on arm LEFT-09/2019 History of total knee replacement LEFT TKA: 08/13/17: SAB AT L3-L4 + PNB History of total knee replacement RIGHT Family History Father Family history of diabetes mellitus Social History Smoking Status: Never smoker Second Hand Exposure: No; Do You Dip or Chew Tobacco: No; Hx Alcohol Use: No Hx Substance Use: No Preferred Language: Bengali Communication Ability: Effective Packing Clerk Required: No Beliefs That Will Affect Care: None marital status: Current Living Situation: Spouse Other Information That Helps Us Care for You: No Feels Safe at Home: Yes Safety Concerns: Feels Safe At This Time Assistive Devices: Cane, Denture - Upper, Denture - Lower and Glasses Assistive Devices Comment: PARTIALS/2 CANES Review of Systems Review of Systems: All systems reviewed & are unremarkable except as noted in HPI & below Physical Exam Physical Exam: Constitutional: WD/WN, drowsy, vitals as above, NAD, lying in bed, pleasant, answers questions appropriately, falls back asleep easily Head: Normocephalic, Atraumatic Eyes: PERRL, conjunctivae normal, anicteric sclerae ENMT: external ear and nose normal, oropharynx normal Neck: trachea midline, no thyromegaly normal visual inspection Respiratory: normal respiratory effort, lungs clear to auscultation, no wheeze, rales, rhonchi. Normal insp/exp effort, no accessory muscle use Cardiovascular: RRR, 1/6 DANIS noted RUSB, bilateral teds/SCDs in place, no edema Vessels: no JVD or carotid bruit Chest: normal inspection of chest Abdomen: normal bowel sounds, soft, nontender, no hepatosplenomegaly Musculoskeletal: no cyanosis or clubbing, extremities motor strength 5/5 Skin: no rashes, warm and dry normal turgor Neurologic: PERRL, EOMI, accommodation nl, no face palsy, no dysarthria CN's II-XI intact bilaterally and moves all extremities Psychiatric: A+Ox3, euthymic affect Lymphatic: no cervical or axillary lymphadenopathy : Wheatley catheter in place draining clear yellow urine Results & Data ([facility]) Vital Signs (Past 12 Hours) Vital Signs Temp Pulse Pulse Resp BP BP Pulse Ox 11/29/19 11:31 64 16 106/64 98 11/29/19 11:00 60 16 103/63 98 11/29/19 10:25 63 16 122/60 99 11/29/19 10:15 36.5 C 69 16 123/61 99 11/29/19 10:05 70 16 130/64 99 11/29/19 09:55 78 16 133/66 100 11/29/19 09:46 36.3 C L 86 16 148/89 H 100 11/29/19 06:51 37.1 C 92 H 20 123/76 97 Laboratory Results Pre op lab 11/11/2019 CBC: WBC 5.5k, H&H 12.4 and 36.9, platelet 180 BMP: Sodium 137, K3.6, BUN 18, creatinine 0.91, glucose 200, A1c 8.2 Diagnostic Findings Preoperative echocardiogram 10/2019 was within normal limits with an EF of 60 to 65% Medications Administered Lumbar Spine Xray: IMPRESSION: Fluoroscopy provided for a L3-L5 posterior decompression and fusion CXR: IMPRESSION: No acute process. ECG Rate (beats per minute): 88 Rhythm: normal sinus
[2019-11-29] MEDS: ACETAMINOPHEN 1,000 MG/100 ML VIAL IV PRN (12:24)
[2019-11-29] MEDS ORDERED: NovoLIN-N (NPH) PER UNIT CHARGE SQ ONE (12:45)
[2019-11-29] MEDS: INSULIN ASPART 100 UNITS/ML 3 ML PEN SC SCH ×3 (13:02→21:28)
--- NOTE | 2019-11-29 14:06 | Pharmacy Report ---
Glycemic Control Consultation - Date of Service November 29, 2019 - Scope Scope: Glycemic Pharmacist consulted for glycemic control and to write orders per [facility] inpatient glycemic control protocol. - Objective Weight: 82.3 kg Accuchecks BSG (last 24hrs): 11/29/19 11/29/19 11/29/19 06:26 09:49 11:58 POC Glucose 178 H 141 H 182 H HbA1c: Hemoglobin A1c 8.2 % (4.5-5.6) H 11/11/19 10:49 - Recent Pertinent Medications Outpatient Anti-diabetic Regimen: * Jardiance 10 mg daily, glimepiride 1 mg qam and 0.5 mg qpm, metformin 1 gm qam and 500 mg qpm * A1c = 8.2 % 11/11/19 Risk Factors for Insulin Resistance: * Steroids: Dex 8 iv * Recent Surgery: POD 0 * Diet: clears - Assessment & Plan Assessment & Plan: ASSESSMENT: * 69 year old female now s/p lumbar decompression fusion, POD 0. Type 2 diabetic managed only on oral agents at home * Patient received IV dexamethasone intraop therefore anticipate steroid induced hyperglycemia. Plan to utilize basal/bolus insulin postop PLAN FOR INPATIENT GLYCEMIC CONTROL: * Holding outpatient oral diabetes medications * Basal insulin * NPH - 18 units x 1 (~0.2 units/kg) - to help cover steroids * Bolus insulin * NovoLog per scale ACHS or Q6hrs while NPO * Goal Range: Low 110 mg/dL - High 140 mg/dL * Correction Factor: 25 mg/dL/unit * Nutritional / Prandial insulin per carb ratio of 1 unit per 8 grams CHO consumed * Please note that the plan above was derived based on current level of insulin resistance and hospital stress. These recommendations are appropriate for inpatient admission only. Plan of care upon discharge will need to be reassessed to avoid potential outpatient hypo/hyperglycemia. Thank you.
[2019-11-29] MEDS: CEFAZOLIN 2000MG 2,000 MG/15 ML SYR IV SCH (15:48)
[2019-11-29] MEDS: SODIUM CHLORIDE 0.9% 1000ML 1,000 ML IV SCH (18:26)
[2019-11-29] MEDS: ONDANSETRON INJ 2 MG/ML 2 ML VIAL IV PRN (19:44)
[2019-11-29] MEDS: OXYCODONE HCL IR 5 MG TAB (IMMEDIATE RELEASE) PO PRN (19:45)
[2019-11-29] MEDS ORDERED: GLIMEPIRIDE 2 MG TAB PO SCH (21:00)
[2019-11-29] MEDS: DOCUSATE SODIUM/SENNA 50/8.6MG TAB PO SCH (21:27)
[2019-11-30] MEDS: INSULIN ASPART 100 UNITS/ML 3 ML PEN SC SCH ×6 (00:11→21:09)
[2019-11-30] MEDS: CEFAZOLIN 2000MG 2,000 MG/15 ML SYR IV SCH (00:18)
[2019-11-30] MEDS: ACETAMINOPHEN 1,000 MG/100 ML VIAL IV PRN (03:16)
[2019-11-30] MEDS: SODIUM CHLORIDE 0.9% 1000ML 1,000 ML IV SCH ×2 (03:17→06:52)
[2019-11-30] MEDS: ONDANSETRON INJ 2 MG/ML 2 ML VIAL IV PRN (05:50)
[2019-11-30] MEDS: OXYCODONE HCL IR 5 MG TAB (IMMEDIATE RELEASE) PO PRN ×4 (05:50→21:10)
[2019-11-30] MEDS: POLYETHYLENE (MIRALAX) 17 GM PACK PO SCH ×4 (05:50→23:31)
[2019-11-30 06:11] LABS: Eosinophils # (auto) 0.02 K/uL (0-0.5); Eosinophils % (auto) 0.3 %; Hemoglobin 10.4 g/dL (12.0-16.0); Immature Granulocytes # (auto) 0.01 K/uL (0.00-0.02); Immature Granulocytes % (auto) 0.1 %; Lymphocytes # (auto) 0.95 K/uL (1.2-3.4); Lymphocytes % (auto) 12.8 %; Mean Corpuscular Hemoglobin 30.3 pg (25-34); Mean Corpuscular Hgb Conc 33.5 g/dL (32-36); Mean Corpuscular Volume 90.4 fL (80-100); Mean Platelet Volume 9.4 fL (7.4-10.4); Monocytes # (auto) 0.52 K/uL (0.11-0.59); Neutrophils # (auto) 5.92 K/uL (1.4-6.5); Neutrophils % (auto) 79.8 %; Platelet Count 169 K/uL (130-400); RDW Coefficient of Variation 13.7 % (11.5-14.5); RDW Standard Deviation 45.1 fL (36.4-46.3); Red Blood Count 3.43 M/uL (4.2-5.4); White Blood Count 7.42 K/uL (4.8-10.8)
[2019-11-30 06:45] LABS: BUN Creatinine Ratio 25.2 (10-20); Calcium 7.8 mg/dl (8.5-10.1); Creatinine Clr Calc Pharmacy 50.7 ml/min; Est GFR (African American) 58.7; Est GFR (Non-African American) 50.6; Potassium 3.5 mmol/L (3.5-5.1)
[2019-11-30] MEDS ORDERED: NovoLIN-N (NPH) PER UNIT CHARGE SQ ONE (08:15)
--- NOTE | 2019-11-30 08:29 | Orthopedic Progress Note ---
Date of Service November 30, 2019 Assessment & Plan (1) Neurogenic claudication due to lumbar spinal stenosis: Admission and Anticipated Discharge Date Admission Date: November 29, 2019 At this time we will continue physical therapy monitor FABIOLA output anticipate discharge home in the next few days. Subjective Back pain controlled leg symptoms markedly improved. Physical Exam Physical Exam: On exam patient is ambulating well. Excellent strength testing. Results & Data ([facility]) Vital Signs (Past 12 Hours) Vital Signs Temp Pulse Resp BP Pulse Ox 11/30/19 07:48 36.7 C 61 18 110/68 100 11/30/19 03:41 36.6 C 51 L 16 98/64 L 100 11/29/19 22:52 36.5 C 56 L 18 100/64 99
[2019-11-30] MEDS ORDERED: NON-FORMULARY MEDICATION (Empagliflozin [Jardiance] 10 MG) PO SCH (09:00)
[2019-11-30] MEDS ORDERED: INDAPAMIDE 1.25 MG TAB PO SCH (09:00)
[2019-11-30] MEDS ORDERED: GLIMEPIRIDE 2 MG TAB PO SCH (09:00)
[2019-11-30] MEDS ORDERED: NON-FORMULARY MEDICATION (Calcium-Magnesium-Zinc 1 TAB) PO SCH (09:00)
[2019-11-30] MEDS ORDERED: lisinopriL 40 MG TAB PO SCH (09:00)
[2019-11-30] MEDS: predniSONE 5 MG TAB PO SCH (09:07)
[2019-11-30] MEDS: CHOLECALCIFEROL 1,000 UNITS 25 MCG TAB PO SCH (09:07)
[2019-11-30] MEDS: ASCORBIC ACID 500 MG TAB PO SCH (09:07)
[2019-11-30] MEDS: VITAMIN B COMPLEX TAB PO SCH (09:07)
[2019-11-30] MEDS: FLUTICASONE/VILANTEROL 100/25MCG 14 PUFFS/INHALER INH SCH (09:08)
--- NOTE | 2019-11-30 09:11 | Hospitalist Progress Note ---
Date of Service November 30, 2019 Assessment & Plan (1) Neurogenic claudication due to lumbar spinal stenosis: Status post lumbar decompression fusion L3-L5 by Dr. Elizabeth POD #0 EBL 100 mL; FABIOLA drain 320 mL Tolerated procedure well Pain/wound management per Ortho Activity and therapy as directed by Ortho Encourage incentive spirometry and wean O2 as able Monitor H&H remove barnhart after therapy (2) Anemia: hgb 10.4 today pre op 12.4 stable, total blood loss 420ml likely dilutional component (3) Diabetes mellitus, type 2: Last A1c 8.0 11/11/2019 Glycemic pharmacy on board, appreciate their management Outpatient regimen of metformin, Jardiance and glimepiride BSG 124 fasting (4) Hypertension: Blood pressure 110/68 this morning, collectively still on lower side continue to hold lisinopril and indapamide resume when able (5) Seronegative polyarthritis: Follows [facility] rheumatology Continue daily prednisone Receive stress dose steroid preoperatively dexamethasone 8 mg (6) Asthma: continue advair no acute exac (7) DVT prophylaxis: Per primary Follow up: PCP Dr. Treadwell upon discharge Pt was seen and examined in collaboration with Dr. Manriquez, please see addendum Starting 11/30/2019 pt will be under the care of Dr. Boyer Thank you for this consultation. We will follow the patient with you during their hospital stay. You can reach a member of the [facility] Hospitalist Team 30/09 via pager @ [phone]. Admission and Anticipated Discharge Date Admission Date: November 29, 2019 Supervising Physician Co-Signing Physician Notes Attending addendum The patient was seen and examined in medical floor She is a status post lumbar decompression and fusion Denies any other symptoms except pain at the back without radiation On examination On a chair without any acute distress Hemodynamically stable Chest-clear Heart-S1-S2, regular without any murmur Abdomen-benign Extremities-trace edema bilaterally Her labs and imaging studies reviewed Agree with assessment and plan as outlined above by Kaylah Jarvis Remains stable medically. Dr. Saba Boyer Subjective Patient was seen and examined in room 310. Follow-up of lumbar procedure by Dr. Elizabeth. She is sitting up in bedside chair this morning. She ate all her breakfast. "I feel quite well." She denies fever, chills, sweats, lightheadedness, dizziness, chest pain, shortness breath, cough, nausea,, abdominal pain. She continues to have Barnhart catheter in place which will be removed after therapy this morning. She is passing flatus. Review of Systems Review of Systems: All systems reviewed & are unremarkable except as noted in HPI & below Physical Exam Physical Exam: Gen: WD/WN, NAD, A&O x3 HEENT: Normocephalic, atraumatic, conjunctivae moist, sclerae anicteric, mucous membranes moist. Lung: Clear to Auscultation bilaterally, no wheezes/rales/rhonchi Heart: Regular rate, regular rhythm, 2/6 DANIS noted RUSB, no rubs, or gallops Abdomen: Soft, NT, ND +BS x 4 Extremities: No edema, bilateral teds in place, lumbar dressing CDI with FABIOLA drain serosanguineous drainage Skin: Warm, no rash, negative turgor. : Barnhart cath with clear yellow urine Results & Data Results & Data ([facility]) Vital Signs (Past 12 Hours) Vital Signs Temp Pulse Resp BP Pulse Ox 11/30/19 07:48 36.7 C 61 18 110/68 100 11/30/19 03:41 36.6 C 51 L 16 98/64 L 100 11/29/19 22:52 36.5 C 56 L 18 100/64 99 Laboratory Results Short CBC 11/30/19 Range/Units 05:58 WBC 7.42 (4.8-10.8) K/uL Hgb 10.4 L (12.0-16.0) g/dL Hct 31.0 L (37-47) % Plt Count 169 (130-400) K/uL BMP 11/30/19 05:58 Sodium 138 Potassium 3.5 Chloride 104 Carbon Dioxide 26 BUN 28 H Creatinine 1.11 Glucose 124 H Calcium 7.8 L Medications Administered Acetaminophen (Ofirmev) 1,000 mg in 100 mls @ 400 mls/hr IV Q8H PRN PRN Reason: MILD Pain Rating 1,2,3 Stop: 11/30/19 10:48 Last Infusion: 11/30/19 03:40 Dose: 0 mls/hr Documented by: [id number] Admin: 11/30/19 03:16 Dose: 400 mls/hr Documented by: [id number] Infusion: 11/29/19 12:42 Dose: 0 mls/hr Documented by: [id number] Admin: 11/29/19 12:24 Dose: 400 mls/hr Documented by: [id number] Insulin Aspart (Insulin Aspart 100 Units/Ml 3 Ml Pen) 0 units SC ACHS CATY; Protocol Stop: 12/29/19 11:29 Last Admin: 11/29/19 21:28 Dose: 2 units Documented by: [id number] Cosigned by: [id number] Admin: 11/29/19 17:34 Dose: 10 units Documented by: [id number] Cosigned by: [id number] Admin: 11/29/19 13:02 Dose: 7 units Documented by: [id number] Cosigned by: [id number] Ondansetron HCl (Ondansetron Inj 2 Mg/Ml 2 Ml Vial) 4 mg IV Q6H PRN PRN Reason: Nausea &/or Vomiting Stop: 12/29/19 10:48 Last Admin: 11/30/19 05:50 Dose: 4 mg Documented by: [id number] Admin: 11/29/19 19:44 Dose: 4 mg Documented by: [id number] Oxycodone HCl (Oxycodone Hcl Ir 5 Mg Tab (Immediate Release)) 5 - 10 mg PO Q4H PRN PRN Reason: Moderate-Severe Pain & Pre PT Stop: 12/13/19 10:48 Last Admin: 11/30/19 05:50 Dose: 10 mg Documented by: [id number] Admin: 11/29/19 19:45 Dose: 10 mg Documented by: [id number] Polyethylene Glycol (Polyethylene (Miralax) 17 Gm Pack) 17 gm PO Q6 CATY Stop: 12/30/19 05:59 Last Admin: 11/30/19 05:50 Dose: 17 gm Documented by: [id number] Senna/Docusate Sodium (Docusate Sodium/Senna 50/8.6mg Tab) 2 tab PO HS CATY Stop: 12/29/19 20:59 Last Admin: 11/29/19 21:27 Dose: 2 tab Documented by: [id number] Discontinued Medications Acetaminophen (Acetaminophen 500 Mg Tab) 1,000 mg PO PREOP CATY Stop: 11/29/19 18:00 Last Admin: 11/29/19 07:12 Dose: 1,000 mg Documented by: [id number] Bacitracin (Bacitracin Inj 50,000 Unit Vial) Confirm Administered Dose 50,000 units .ROUTE .STK-MED ONE Stop: 11/29/19 07:02 Last Admin: 11/29/19 08:27 Dose: 50,000 units Documented by: [id number] Bupivacaine HCl/Epinephrine Bitart (Bupivacaine/Epinephrine 0.25% 1:200,000 30 Ml Vial) Confirm Administered Dose 30 ml .ROUTE .STK-MED ONE Stop: 11/29/19 07:02 Last Admin: 11/29/19 08:28 Dose: 30 ml Documented by: [id number] Celecoxib (Celebrex 200 Mg Cap) 200 mg PO PREOP CATY Stop: 11/29/19 18:00 Last Admin: 11/29/19 07:13 Dose: 200 mg Documented by: [id number] Gabapentin (Gabapentin 300 Mg Cap) 300 mg PO PREOP CATY Stop: 11/29/19 18:00 Last Admin: 11/29/19 07:13 Dose: 300 mg Documented by: [id number] Lactated Ringer's (Lr) 1,000 mls @ 15 mls/hr IV .Q24H CATY Stop: 11/30/19 05:59 Last Infusion: 11/29/19 07:57 Dose: 0 mls/hr Documented by: [id number] Admin: 11/29/19 06:44 Dose: 15 mls/hr Documented by: [id number] Cefazolin Sodium (Ancef 2000mg) 2,000 mg in 15 mls @ 3.75 mls/min IV PREOP CATY; Protocol Stop: 11/29/19 18:00 Last Admin: 11/29/19 07:57 Dose: 3.75 mls/min Documented by: [id number] Insulin Human Regular 2 units/ (Syringe) 2 mls @ 0 mls/hr IV NOW STA Stop: 11/29/19 07:39 Last Admin: 11/29/19 07:55 Dose: 1 mls/hr Documented by: [id number] Cosigned by: [id number] Cefazolin Sodium (Ancef 2000mg) 2,000 mg in 15 mls @ 3.75 mls/min IV Q8H CATY; Protocol Stop: 11/30/19 00:03 Last Admin: 11/30/19 00:18 Dose: 3.75 mls/min Documented by: [id number] Admin: 11/29/19 15:48 Dose: 3.75 mls/min Documented by: [id number] Sodium Chloride (Nss 1000ml) 1,000 mls @ 100 mls/hr IV .Q10H [facility] Stop: 12/29/19 10:48 Last Admin: 11/30/19 06:52 Dose: Not Given Documented by: [id number] Infusion: 11/30/19 06:32 Dose: 0 mls/hr Documented by: [id number] Infusion: 11/30/19 03:41 Dose: 100 mls/hr Documented by: [id number] Infusion: 11/30/19 03:18 Dose: 0 mls/hr Documented by: [id number] Admin: 11/30/19 03:17 Dose: 100 mls/hr Documented by: [id number] Infusion: 11/30/19 03:17 Dose: 100 mls/hr Documented by: [id number] Admin: 11/29/19 18:26 Dose: 100 mls/hr Documented by: [id number] Insulin Aspart (Insulin Aspart 100 Units/Ml 3 Ml Pen) 0 units SC 0000,0400 [facility]; Protocol Stop: 11/30/19 04:01 Last Admin: 11/30/19 04:03 Dose: Not Given Documented by: [id number] Cosigned by: [id number] Admin: 11/30/19 00:11 Dose: Not Given Documented by: [id number] Cosigned by: [id number] Insulin Human NPH (Novolin-N (Nph) Per Unit Charge) 18 units SQ NOW ONE Stop: 11/29/19 12:46 Last Admin: 11/29/19 13:03 Dose: 18 units Documented by: [id number] Cosigned by: [id number] Miscellaneous ( Floseal Hemostatic Matrix 10ml) 20 ml TOP ONCE ONE Stop: 11/29/19 08:28 Last Admin: 11/29/19 09:25 Dose: 7 ml Documented by: [id number]
--- NOTE | 2019-11-30 09:40 | Pharmacy Report ---
Pharmacy Glycemic Short Note 2 - Date of Service November 30, 2019 - Glycemic Short BSG Results (Last 24 hours): 11/29/19 11/29/19 11/29/19 09:49 11:58 17:12 Glucose POC Glucose 141 H 182 H 226 H 11/29/19 11/29/19 11/30/19 20:37 23:55 03:47 Glucose POC Glucose 185 H 135 H 132 H 11/30/19 11/30/19 05:58 08:10 Glucose 124 H POC Glucose 121 H OUTPATIENT ANTIDIABETIC REGIMEN: * Jardiance 10 mg daily, glimepiride 1 mg qam and 0.5 mg qpm, metformin 1 gm qam and 500 mg qpm * A1c = 8.2 % 11/11/19 ASSESSMENT: * 69yo T2DM female with sub-adequate outpatient control per recent A1c. Goal A1c is <7% based on age/co-morbid conditions * Outpatient oral agents on hold for admission and using weight based dosing of basal bolus insulin regimen (slightly adjusted for steroids) * Pt was ordered Dexamethasone 8mg IV in OR/PACU yesterday. Received a weight based dose of NPH (18 units) to cover steroid induced hyperglycemia. This dose yielded BSGs in goal range. * Pt ordered outpatient dosing of Prednisone 5mg PO daily. Will continue same dosing of insulin as yesterday despite dose decrease in steroids since diet is advanced from clears to T2DM. * Titrate based on BSG trends * Goal is to maintain BSGs <200 mg/dl (ideally <150 mg/dl) to prevent post op infectious complications PLAN FOR INPATIENT GLYCEMIC CONTROL: * Hold outpatient oral diabetes medications * Basal insulin * NPH 18 units SQ daily * Bolus insulin * NovoLog per scale ACHS or Q6hrs while NPO * Goal Range: Low 110 mg/dL - High 140 mg/dL * Correction Factor: 25 mg/dL/unit * Nutritional / Prandial insulin per carb ratio of 1 unit per 8 grams CHO consumed PLAN FOR DISCHARGE: * A1c = 8.2% on 11/11/19 * Goal A1c <7 % based on age and comorbidities * Could consider maximizing doses of glimepiride and metformin for tighter glycemic control.
[2019-11-30] MEDS: ONDANSETRON 4 MG OD TAB PO PRN ×2 (16:05→21:12)
[2019-11-30] MEDS: DOCUSATE SODIUM/SENNA 50/8.6MG TAB PO SCH (21:11)
[2019-12-01] MEDS: ONDANSETRON 4 MG OD TAB PO PRN ×3 (01:40→20:06)
[2019-12-01] MEDS: OXYCODONE HCL IR 5 MG TAB (IMMEDIATE RELEASE) PO PRN ×5 (01:41→20:06)
[2019-12-01] MEDS: ACETAMINOPHEN 500 MG TAB PO PRN (06:06)
[2019-12-01] MEDS: POLYETHYLENE (MIRALAX) 17 GM PACK PO SCH ×4 (06:06→23:50)
[2019-12-01] MEDS: ONDANSETRON INJ 2 MG/ML 2 ML VIAL IV PRN (07:48)
[2019-12-01] MEDS: CHOLECALCIFEROL 1,000 UNITS 25 MCG TAB PO SCH (07:49)
[2019-12-01] MEDS: ASCORBIC ACID 500 MG TAB PO SCH (07:49)
[2019-12-01] MEDS: VITAMIN B COMPLEX TAB PO SCH (07:49)
[2019-12-01] MEDS: predniSONE 5 MG TAB PO SCH (07:50)
[2019-12-01] MEDS: FLUTICASONE/VILANTEROL 100/25MCG 14 PUFFS/INHALER INH SCH (07:50)
[2019-12-01] MEDS: INSULIN ASPART 100 UNITS/ML 3 ML PEN SC SCH ×4 (07:52→21:20)
[2019-12-01] MEDS ORDERED: NovoLIN-N (NPH) PER UNIT CHARGE SQ ONE (09:00)
--- NOTE | 2019-12-01 09:23 | Hospitalist Progress Note ---
Date of Service December 01, 2019 Assessment & Plan (1) Neurogenic claudication due to lumbar spinal stenosis: Status post lumbar decompression fusion L3-L5 by Dr. Elizabeth POD #0 EBL 100 mL; FABIOLA drain 520 mL Tolerated procedure well Pain/wound management per Ortho Activity and therapy as directed by Ortho Encourage incentive spirometry and wean O2 as able Monitor H&H remove barnhart after therapy (2) Anemia: hgb 10.4 pre op 12.4 stable, total blood loss 620ml likely dilutional component (3) Diabetes mellitus, type 2: Last A1c 8.0 11/11/2019 Glycemic pharmacy on board, appreciate their management Outpatient regimen of metformin, Jardiance and glimepiride BSG 152 fasting (4) Hypertension: Blood pressure 120/74 this morning, collectively still on lower side (98/64 @ 0341) continue to hold lisinopril and indapamide monitor BP closely and resume when able (5) Seronegative polyarthritis: Follows [facility] rheumatology Continue daily prednisone Receive stress dose steroid preoperatively dexamethasone 8 mg (6) Asthma: continue advair no acute exac (7) DVT prophylaxis: Per primary Follow up: PCP Dr. Treadwell upon discharge Pt was seen and examined in collaboration with Dr. Gu, please see addendum Thank you for this consultation. We will follow the patient with you during their hospital stay. You can reach a member of the [facility] Hospitalist Team 30/09 via pager @ [phone]. Admission and Anticipated Discharge Date Admission Date: November 29, 2019 Supervising Physician Co-Signing Physician Notes Pt was seen and examined. Agreed with Kaylah DORANTES exam, assessment and plan. S/P day#1 Lumbar decompression fusion L3-L5 by Dr. Elizabeth. No post-op complications. Pain control. Continue physical and occupational therapy. Continue incentive spirometry. Fall precaution. continue monitor closely. MD Brittanie Subjective Patient was seen and examined in room 310. Follow-up of lumbar procedure by Dr. Elizabeth. She is sitting up in bedside chair this morning. Overall feels well this morning. Plans are to be discharged tomorrow. She is passing flatus but no BM. She is urinating without difficulty now the Barnhart catheter is removed. She continues to have back pain and states that yesterday she let it get ahead of her. Encourage patient to take pain medication consistently. She denies fever, chills, sweats, lightheadedness, dizziness, chest pain, shortness breath, cough, nausea, abdominal pain. Good appetite. Review of Systems Review of Systems: All systems reviewed & are unremarkable except as noted in HPI & below Physical Exam Physical Exam: Gen: WD/WN, NAD, A&O x3 HEENT: Normocephalic, atraumatic, conjunctivae moist, sclerae anicteric, mucous membranes moist. Lung: Clear to Auscultation bilaterally, no wheezes/rales/rhonchi Heart: Regular rate, regular rhythm, 2/6 DANIS noted RUSB, no rubs, or gallops Abdomen: Soft, NT, ND +BS x 4 Extremities: No edema, bilateral teds in place, lumbar dressing CDI with FABIOLA drain serosanguineous drainage Skin: Warm, no rash, negative turgor. Results & Data Results & Data ([facility] [place]) Vital Signs (Past 12 Hours) Vital Signs Temp Pulse Resp BP Pulse Ox 12/01/19 06:32 36.9 C 76 16 120/74 97 11/30/19 23:26 36.7 C 71 16 112/71 99 Medications Administered Acetaminophen (Acetaminophen 500 Mg Tab) 1,000 mg PO Q8 PRN PRN Reason: Pain Stop: 12/29/19 10:48 Last Admin: 12/01/19 06:06 Dose: 1,000 mg Documented by: [id number] Ascorbic Acid (Ascorbic Acid 500 Mg Tab) 500 mg PO DAILY CATY Stop: 12/30/19 08:59 Last Admin: 12/01/19 07:49 Dose: 500 mg Documented by: [id number] Admin: 11/30/19 09:07 Dose: 500 mg Documented by: [id number] Fluticasone/Vilanterol (Fluticasone/Vilanterol 100/25mcg 14 Puffs/Inhaler) 1 puffs INH DAILY CATY Stop: 12/30/19 08:59 Last Admin: 12/01/19 07:50 Dose: 1 puffs Documented by: [id number] Admin: 11/30/19 09:08 Dose: 1 puffs Documented by: [id number] Insulin Aspart (Insulin Aspart 100 Units/Ml 3 Ml Pen) 0 units SC ACHS [facility]; Protocol Stop: 12/29/19 11:29 Last Admin: 12/01/19 07:52 Dose: 5 units Documented by: [id number] Cosigned by: [id number] Admin: 11/30/19 21:09 Dose: 2 units Documented by: [id number] Cosigned by: [id number] Admin: 11/30/19 17:41 Dose: 9 units Documented by: [id number] Cosigned by: [id number] Admin: 11/30/19 12:55 Dose: 3 units Documented by: [id number] Cosigned by: [id number] Admin: 11/30/19 09:49 Dose: 7 units Documented by: [id number] Cosigned by: [id number] Admin: 11/29/19 21:28 Dose: 2 units Documented by: [id number] Cosigned by: [id number] Admin: 11/29/19 17:34 Dose: 10 units Documented by: [id number] Cosigned by: [id number] Admin: 11/29/19 13:02 Dose: 7 units Documented by: [id number] Cosigned by: [id number] Ondansetron HCl (Ondansetron Inj 2 Mg/Ml 2 Ml Vial) 4 mg IV Q6H PRN PRN Reason: Nausea &/or Vomiting Stop: 12/29/19 10:48 Last Admin: 12/01/19 07:48 Dose: 4 mg Documented by: [id number] Admin: 11/30/19 05:50 Dose: 4 mg Documented by: [id number] Admin: 11/29/19 19:44 Dose: 4 mg Documented by: [id number] Ondansetron HCl (Ondansetron 4 Mg Od Tab) 4 mg PO Q4H PRN PRN Reason: Nausea Stop: 12/30/19 08:27 Last Admin: 12/01/19 01:40 Dose: 4 mg Documented by: [id number] Admin: 11/30/19 21:12 Dose: 4 mg Documented by: [id number] Admin: 11/30/19 16:05 Dose: 4 mg Documented by: [id number] Oxycodone HCl (Oxycodone Hcl Ir 5 Mg Tab (Immediate Release)) 5 - 10 mg PO Q4H PRN PRN Reason: Moderate-Severe Pain & Pre PT Stop: 12/13/19 10:48 Last Admin: 12/01/19 07:48 Dose: 10 mg Documented by: [id number] Admin: 12/01/19 01:41 Dose: 10 mg Documented by: [id number] Admin: 11/30/19 21:10 Dose: 10 mg Documented by: [id number] Admin: 11/30/19 16:05 Dose: 10 mg Documented by: [id number] Admin: 11/30/19 09:50 Dose: 10 mg Documented by: [id number] Admin: 11/30/19 05:50 Dose: 10 mg Documented by: [id number] Admin: 11/29/19 19:45 Dose: 10 mg Documented by: [id number] Polyethylene Glycol (Polyethylene (Miralax) 17 Gm Pack) 17 gm PO Q6 CATY Stop: 12/30/19 05:59 Last Admin: 12/01/19 06:06 Dose: Not Given Documented by: [id number] Admin: 11/30/19 23:31 Dose: 17 gm Documented by: [id number] Admin: 11/30/19 17:43 Dose: Not Given Documented by: [id number] Admin: 11/30/19 12:54 Dose: 17 gm Documented by: [id number] Admin: 11/30/19 05:50 Dose: 17 gm Documented by: [id number] Prednisone (Prednisone 5 Mg Tab) 5 mg PO QAM CATY Stop: 12/30/19 08:59 Last Admin: 12/01/19 07:50 Dose: 5 mg Documented by: [id number] Admin: 11/30/19 09:07 Dose: 5 mg Documented by: [id number] Senna/Docusate Sodium (Docusate Sodium/Senna 50/8.6mg Tab) 2 tab PO HS CATY Stop: 12/29/19 20:59 Last Admin: 11/30/19 21:11 Dose: 2 tab Documented by: [id number] Admin: 11/29/19 21:27 Dose: 2 tab Documented by: [id number] Vitamin B Complex (Vitamin B Complex Tab) 1 tab PO DAILY CATY Stop: 12/30/19 08:59 Last Admin: 12/01/19 07:49 Dose: 1 tab Documented by: [id number] Admin: 11/30/19 09:07 Dose: 1 tab Documented by: [id number] Vitamin D (Cholecalciferol 1,000 Units 25 Mcg Tab) 1,000 units PO DAILY CATY Stop: 12/30/19 08:59 Last Admin: 12/01/19 07:49 Dose: 1,000 units Documented by: [id number] Admin: 11/30/19 09:07 Dose: 1,000 units Documented by: [id number] Discontinued Medications Acetaminophen (Acetaminophen 500 Mg Tab) 1,000 mg PO PREOP CATY Stop: 11/29/19 18:00 Last Admin: 11/29/19 07:12 Dose: 1,000 mg Documented by: [id number] Bacitracin (Bacitracin Inj 50,000 Unit Vial) Confirm Administered Dose 50,000 units .ROUTE .STK-MED ONE Stop: 11/29/19 07:02 Last Admin: 11/29/19 08:27 Dose: 50,000 units Documented by: [id number] Bupivacaine HCl/Epinephrine Bitart (Bupivacaine/Epinephrine 0.25% 1:200,000 30 Ml Vial) Confirm Administered Dose 30 ml .ROUTE .STK-MED ONE Stop: 11/29/19 07:02 Last Admin: 11/29/19 08:28 Dose: 30 ml Documented by: [id number] Celecoxib (Celebrex 200 Mg Cap) 200 mg PO PREOP CATY Stop: 11/29/19 18:00 Last Admin: 11/29/19 07:13 Dose: 200 mg Documented by: [id number] Gabapentin (Gabapentin 300 Mg Cap) 300 mg PO PREOP CATY Stop: 11/29/19 18:00 Last Admin: 11/29/19 07:13 Dose: 300 mg Documented by: [id number] Lactated Ringer's (Lr) 1,000 mls @ 15 mls/hr IV .Q24H CATY Stop: 11/30/19 05:59 Last Infusion: 11/29/19 07:57 Dose: 0 mls/hr Documented by: [id number] Admin: 11/29/19 06:44 Dose: 15 mls/hr Documented by: [id number] Cefazolin Sodium (Ancef 2000mg) 2,000 mg in 15 mls @ 3.75 mls/min IV PREOP CATY; Protocol Stop: 11/29/19 18:00 Last Admin: 11/29/19 07:57 Dose: 3.75 mls/min Documented by: [id number] Insulin Human Regular 2 units/ (Syringe) 2 mls @ 0 mls/hr IV NOW STA Stop: 11/29/19 07:39 Last Admin: 11/29/19 07:55 Dose: 1 mls/hr Documented by: [id number] Cosigned by: [id number] Acetaminophen (Ofirmev) 1,000 mg in 100 mls @ 400 mls/hr IV Q8H PRN PRN Reason: MILD Pain Rating 1,2,3 Stop: 11/30/19 10:48 Last Infusion: 11/30/19 03:40 Dose: 0 mls/hr Documented by: [id number] Admin: 11/30/19 03:16 Dose: 400 mls/hr Documented by: [id number] Infusion: 11/29/19 12:42 Dose: 0 mls/hr Documented by: [id number] Admin: 11/29/19 12:24 Dose: 400 mls/hr Documented by: [id number] Cefazolin Sodium (Ancef 2000mg) 2,000 mg in 15 mls @ 3.75 mls/min IV Q8H CATY; Protocol Stop: 11/30/19 00:03 Last Admin: 11/30/19 00:18 Dose: 3.75 mls/min Documented by: [id number] Admin: 11/29/19 15:48 Dose: 3.75 mls/min Documented by: [id number] Sodium Chloride (Nss 1000ml) 1,000 mls @ 100 mls/hr IV .Q10H CATY Stop: 12/29/19 10:48 Last Admin: 11/30/19 06:52 Dose: Not Given Documented by: [id number] Infusion: 11/30/19 06:32 Dose: 0 mls/hr Documented by: [id number] Infusion: 11/30/19 03:41 Dose: 100 mls/hr Documented by: [id number] Infusion: 11/30/19 03:18 Dose: 0 mls/hr Documented by: [id number] Admin: 11/30/19 03:17 Dose: 100 mls/hr Documented by: [id number] Infusion: 11/30/19 03:17 Dose: 100 mls/hr Documented by: [id number] Admin: 11/29/19 18:26 Dose: 100 mls/hr Documented by: [id number] Insulin Aspart (Insulin Aspart 100 Units/Ml 3 Ml Pen) 0 units SC 0000,0400 CATY; Protocol Stop: 11/30/19 04:01 Last Admin: 11/30/19 04:03 Dose: Not Given Documented by: [id number] Cosigned by: [id number] Admin: 11/30/19 00:11 Dose: Not Given Documented by: [id number] Cosigned by: [id number] Insulin Human NPH (Novolin-N (Nph) Per Unit Charge) 18 units SQ NOW ONE Stop: 11/29/19 12:46 Last Admin: 11/29/19 13:03 Dose: 18 units Documented by: [id number] Cosigned by: [id number] Insulin Human NPH (Novolin-N (Nph) Per Unit Charge) 18 units SQ NOW ONE Stop: 11/30/19 08:16 Last Admin: 11/30/19 09:48 Dose: 18 units Documented by: [id number] Cosigned by: [id number] Insulin Human NPH (Novolin-N (Nph) Per Unit Charge) 18 units SQ 0900 ONE Stop: 12/01/19 09:01 Last Admin: 12/01/19 07:58 Dose: 18 units Documented by: [id number] Cosigned by: [id number] Miscellaneous ( Floseal Hemostatic Matrix 10ml) 20 ml TOP ONCE ONE Stop: 11/29/19 08:28 Last Admin: 11/29/19 09:25 Dose: 7 ml Documented by: [id number]
--- NOTE | 2019-12-01 10:35 | Orthopedic Progress Note ---
Date of Service December 01, 2019 Assessment & Plan (1) Neurogenic claudication due to lumbar spinal stenosis: Admission and Anticipated Discharge Date Admission Date: November 29, 2019 At this point we will continue physical therapy and anticipate discharge home in the a.m. Subjective Back pain controlled leg symptoms markedly improved. Physical Exam Physical Exam: On exam patient is in the chair at the bedside. Is good strength testing. Peers comfortable. Results & Data ([facility]) Vital Signs (Past 12 Hours) Vital Signs Temp Pulse Resp BP Pulse Ox 12/01/19 06:32 36.9 C 76 16 120/74 97 11/30/19 23:26 36.7 C 71 16 112/71 99
--- NOTE | 2019-12-01 14:27 | Pharmacy Report ---
Pharmacy Glycemic Short Note 2 - Date of Service December 01, 2019 - Glycemic Short BSG Results (Last 24 hours): OUTPATIENT ANTIDIABETIC REGIMEN: * Jardiance 10 mg daily, glimepiride 1 mg qam and 0.5 mg qpm, metformin 1 gm qam and 500 mg qpm * A1c = 8.2 % 11/11/19 INPATIENT GLYCEMIC CONTROL ASSESSMENT: 11/30: * Patient received 39 units of insulin yesterday with post prandial BSG elevation. * Would anticipate improvement in BSGs today since steroid effect has worn off. * Will continue current dose of NPH and tighten carb coverage. Will also resume metformin (carb coverage may need loosened/removed once metformin kicks in) 11/29: * 69yo T2DM female with sub-adequate outpatient control per recent A1c. Goal A1c is <7% based on age/co-morbid conditions * Outpatient oral agents on hold for admission and using weight based dosing of basal bolus insulin regimen (slightly adjusted for steroids) * Pt was ordered Dexamethasone 8mg IV in OR/PACU yesterday. Received a weight based dose of NPH (18 units) to cover steroid induced hyperglycemia. This dose yielded BSGs in goal range. * Pt ordered outpatient dosing of Prednisone 5mg PO daily. Will continue same dosing of insulin as yesterday despite dose decrease in steroids since diet is advanced from clears to T2DM. * Titrate based on BSG trends * Goal is to maintain BSGs <200 mg/dl (ideally <150 mg/dl) to prevent post op infectious complications PLAN FOR INPATIENT GLYCEMIC CONTROL: * Resume metformin 1000 mg qam, 500 mg qpm * Basal insulin * NPH 18 units SQ daily * Bolus insulin * NovoLog per scale ACHS or Q6hrs while NPO * Goal Range: Low 110 mg/dL - High 140 mg/dL * Correction Factor: 25 mg/dL/unit * Nutritional / Prandial insulin per carb ratio of 1 unit per 7 grams CHO consumed PLAN FOR DISCHARGE: * A1c = 8.2% on 11/11/19 * Goal A1c <7 % based on age and comorbidities * Could consider maximizing doses of glimepiride and metformin for tighter glycemic control.
[2019-12-01] MEDS ORDERED: METFORMIN HCL 500 MG TAB PO SCH (16:30)
[2019-12-01] MEDS: DOCUSATE SODIUM/SENNA 50/8.6MG TAB PO SCH (20:06)
[2019-12-02] MEDS: OXYCODONE HCL IR 5 MG TAB (IMMEDIATE RELEASE) PO PRN ×3 (00:05→16:10)
[2019-12-02] MEDS: ACETAMINOPHEN 500 MG TAB PO PRN (06:32)
[2019-12-02] MEDS: POLYETHYLENE (MIRALAX) 17 GM PACK PO SCH ×2 (06:32→11:37)
[2019-12-02] MEDS ORDERED: METFORMIN HCL 500 MG TAB PO SCH (07:30)
[2019-12-02] MEDS: FLUTICASONE/VILANTEROL 100/25MCG 14 PUFFS/INHALER INH SCH (07:41)
[2019-12-02] MEDS: ASCORBIC ACID 500 MG TAB PO SCH (07:41)
[2019-12-02] MEDS: VITAMIN B COMPLEX TAB PO SCH (07:42)
[2019-12-02] MEDS: CHOLECALCIFEROL 1,000 UNITS 25 MCG TAB PO SCH (07:43)
[2019-12-02] MEDS: predniSONE 5 MG TAB PO SCH (07:43)
[2019-12-02] MEDS: INSULIN ASPART 100 UNITS/ML 3 ML PEN SC SCH ×2 (07:47→12:55)
[2019-12-02] MEDS ORDERED: NovoLIN-N (NPH) PER UNIT CHARGE SQ ONE (09:00)
--- NOTE | 2019-12-02 09:31 | Pharmacy Report ---
Pharmacy Glycemic Short Note 2 - Date of Service December 02, 2019 - Glycemic Short BSG Results (Last 24 hours): 12/01/19 12/01/19 12/01/19 12:10 17:13 20:44 POC Glucose 215 H 228 H 141 H 12/02/19 06:30 POC Glucose 166 H OUTPATIENT ANTIDIABETIC REGIMEN: * Jardiance 10 mg daily, glimepiride 1 mg qam and 0.5 mg qpm, metformin 1 gm qam and 500 mg qpm * A1c = 8.2 % 11/11/19 INPATIENT GLYCEMIC CONTROL ASSESSMENT: 12/01: * Pt has received 41 units of insulin over the past 24hrs * 18 units of basal with NPH * 23 units of prandial/correctional with NovoLog * Metformin resumed last evening; pt tolerating PO per CHO counts, is POD#3, and labs WNL * BSGs still elevated yesterday likely d/t prednisone and insufficient insulin dosing. Will increase NPH dose for steroid induced hyperglycemia. * NPH insulin is used to counteract the hyperglycemic effect of prednisone. The rationale for this approach is that the pharmacodynamics profile of NPH, with a peak effect of 4-8hrs and duration of action of 12-16hrs, mirrors the pharmacodynamics of prednisone. NPH should be dosed at the same time that prednisone is given * No changes needed to CF/CR since patient will receive both daily doses of outpatient metformin and NPH increased 11/30: * Patient received 39 units of insulin yesterday with post prandial BSG elevation. * Would anticipate improvement in BSGs today since steroid effect has worn off. * Will continue current dose of NPH and tighten carb coverage. Will also resume metformin (carb coverage may need loosened/removed once metformin kicks in) 11/29: * 69yo T2DM female with sub-adequate outpatient control per recent A1c. Goal A1c is <7% based on age/co-morbid conditions * Outpatient oral agents on hold for admission and using weight based dosing of basal bolus insulin regimen (slightly adjusted for steroids) * Pt was ordered Dexamethasone 8mg IV in OR/PACU yesterday. Received a weight based dose of NPH (18 units) to cover steroid induced hyperglycemia. This dose yielded BSGs in goal range. * Pt ordered outpatient dosing of Prednisone 5mg PO daily. Will continue same dosing of insulin as yesterday despite dose decrease in steroids since diet is advanced from clears to T2DM. * Titrate based on BSG trends * Goal is to maintain BSGs <200 mg/dl (ideally <150 mg/dl) to prevent post op infectious complications PLAN FOR INPATIENT GLYCEMIC CONTROL: * Continue metformin 1000 mg qam, 500 mg qpm * Basal insulin: increase * NPH 23 units SQ daily * Bolus insulin: no change * NovoLog per scale ACHS or Q6hrs while NPO * Goal Range: Low 110 mg/dL - High 140 mg/dL * Correction Factor: 25 mg/dL/unit * Nutritional / Prandial insulin per carb ratio of 1 unit per 7 grams CHO consumed PLAN FOR DISCHARGE: * A1c = 8.2% on 11/11/19 * Goal A1c <7 % based on age and comorbidities * Could consider maximizing doses of glimepiride and metformin for tighter glycemic control.
--- NOTE | 2019-12-02 11:20 | Discharge Summary ---
Date of Service December 02, 2019 Admission HPI Per Admitting Provider This is a 69-year-old female who presents with chronic persistent back and leg pain. After failing extensive course of nonoperative care she is here for surgical intervention. Principal Diagnosis Lumbar spinal stenosis with neurogenic claudication Discharge Data Allergies Allergy/AdvReac Type Severity Reaction Status Date / Time Yklmlxt-Cye-Skl Reductase Allergy Intermediate MUSCLE Verified 11/29/19 06:29 Inhibitor ACHES Sulfa (Sulfonamide Allergy Mild HIVES Verified 11/29/19 06:29 Antibiotics) Consultations 11/29/19 10:49 Consult Case Management - Discharge Planning Routine Consult Hospitalist Routine Procedures Performed Operation Date: 11/29/19 07:45 Actual Procedures p L3-L4 Decompression, L3-L5 Fusion, Spinal Cord Monitoring(Not Applicable) - Eben Elizabeth DO s L4-L5 Hardware Removal, - Eben Elizabeth DO Ordered Studies 11/29/19 07:45 FL fluoroscopy <1hr Routine FL lumbar spine 2-3V Routine Hospital Course (1) Neurogenic claudication due to lumbar spinal stenosis: Patient underwent lumbar decompression fusion tolerated this well was taken to the orthopedic for postoperative. Postop day 1 she was up and ambulating progressed to postop day #2 on postop day 3 back pain was well controlled leg symptoms improved subsequently discharged home. Discharge orders instructions from the chart for further review. Total Time Total Time Spent Total Time Spent (In Minutes): 20 minutes Discharge Plan Discharge Items Patient Disposition: Home - Self-Care Reason For Visit: LUMBAR SPINAL STENOSIS W NEUROGENIC CLAUDICATION Discharge Diagnosis: Lumbar spinal stenosis with neurogenic claudication Activity: As commented below Non-emergency contact: Primary Care Provider Call non-emergency contact if: you have any medication questions Follow-up/Referrals: El Treadwell [Primary Care Provider] - Diet: Regular Addtl Attending Provider Instructions: ACTIVITY RECOMMENDATIONS: SELF CARE INSTRUCTIONS AFTER THORACIC/LUMBAR FUSIONS 1. You may walk to your tolerance. It is good exercise for your legs and back. Expect some back and intermittent leg aches and pains. 2. You may perform "counter-top" level activities (make a sandwich, padilla with a project, etc.). 3. No bending or lifting of more than 10 pounds or back twisting of any nature (roll like a log when turning in bed). 4. You may ride in a car for 20-30 minutes at a time. No driving until after your first visit with your doctor. 5. Frequent changes of position and restricting sitting to 30 minutes at a time will help limit the amount of back spasms and stiffness you may experience. 6. You may discontinue the use of ambulatory aids (cane, crutches, etc.) once your strength and confidence allow. 7. You may purchasing agent the shower and let water strike your incision when you arrive home at least once daily. Do not take a tub bath, sit in a hot tub or go into a swimming pool until after your first recheck in the office. SPECIAL CARE INSTRUCTIONS: VERY IMPORTANT TO READ AND REVIEW A. Your surgical incision has been closed with a cosmetic suture under the skin that will dissolve in about 6 weeks. In 14 days, you can use a pair of clean scissors and cut the suture that is left outside of the skin at the ends of your incision. 1. The small skin tapes can be removed 7 days after surgery if they have not fallen off by that point. 2. You may keep the wound open to air as much as possible to promote healing after post-op day number 5 unless told otherwise by your doctor. 3. If you think the wound looks like it is becoming infected (redness or worsening drainage) and/or you are experiencing fever, chill or worsening back pain and muscle spasms, contact the office so that we may evaluate you as soon as possible. B. Complications are uncommon, but please contact us if you have any signs or symptoms of: 1. wound infection (fever higher than 102.5 degrees F, redness, separation of wound, drainage, or increasing pain from the incision) 2. blood clots in legs (pain, swelling, redness and warmth in legs) 3. urinary tract infection (fever higher than 102.5 degrees F, burning upon urination or increased frequency of urination) 4. nerve problems (inability to walk on your toes or heels, numbness, loss of bowel or bladder control) 5. any other symptoms that concern you C. Please call the office at if you have any concerns or questions about your operation or recovery. D. No smoking! Smoking drastically decreases the chance of a solid fusion. E. Do not take any anti-inflammatory medications (Indocin, Advil, Motrin, Aspirin, Naprosyn, etc.) as these may inhibit the chance of a solid fusion. Tylenol is okay to take for pain. MANAGING PAIN AFTER SPINAL SURGERY 1. Narcotic medication is intended for short-term use and will be provided for surgical pain. Surgical pain usually lasts for a period of 4-6 weeks. Narcotic medication includes Percocet, Vicodin, Darvocet, Tylenol #3 or Lortab. 2. Longer-term pain is more appropriately treated with non-narcotic medication such as Tylenol ES. 3. Muscle spasm is not appropriately treated with narcotics. Muscle relaxers such as Soma, Flexeril or Skelaxin can be used along with Tylenol ES. 4. Remember that we all live with some "aches and pains". This is not unusual or uncommon after an injury or as we get older. a. Back pain is expected and may include muscle spasms for 4 to 6 weeks after surgery. The pain should gradually improve. If the pain worsens for no apparent reason, please contact the office. b. Intermittent leg pain may also be experienced and should not be concerned about unless it worsens for no apparent reason. If so, please contact the office. 5. We will provide appropriate medication within the normal guidelines of their prescribed use. We will also be very cautious and aware of potential abuse and extended duration of patients' medication needs. a. Pain medications are for your comfort and to assist with sleep and rest so that the tissue can heal. They are not provided in order to return to normal activity and should not be used through the day. To do so or worsening pain at night can result from ongoing tissue damage and development of tolerance to the prescribed medicine. 6. Please allow 2-3 days to process refills. Prescriptions will not be mailed but must be picked up at the office. FOLLOW UP VISIT: Keep your scheduled follow-up appointment. Any questions, please call the office at . Pending Studies at Discharge: No Stand-Alone Forms: My Brndstr, Smoking Cessation Medications and LA Order Prescriptions: New tramadol 50 mg tablet 50 mg PO Q6H PRN (Reason: pain, moderate) Qty: 20 RF: 0 oxycodone 5 mg tablet 5 mg PO Q6H PRN (Reason: pain, severe) Qty: 20 RF: 0 ondansetron HCl [Zofran] 4 mg tablet 4 mg PO Q6H PRN (Reason: nausea and vomiting) Qty: 30 RF: 0 Continued acetaminophen [Tylenol Extra Strength] 500 mg tablet 1,000 mg PO Q8 PRN (Reason: Pain) RF: 0 Jardiance 10 mg Tablet 10 mg PO DAILY RF: 0 folic acid 400 mcg Tablet 0.4 mg PO QAM RF: 0 ascorbic acid (vitamin C) [Vitamin C] 500 mg Tablet 500 mg PO UD RF: 0 fosinopril 40 mg Tablet 40 mg PO QAM RF: 0 cholecalciferol (vitamin D3) [Vitamin D3] 1,000 unit Capsule 1,000 unit PO UD RF: 0 seactcw-ygipcjdvz-xjoi 333-133-5 mg Tablet 1 tab PO QAM RF: 0 metformin 500 mg Tablet 500 - 1,000 mg PO BID RF: 0 prednisone 5 mg Tablet 5 mg PO QAM RF: 0 glimepiride 1 mg Tablet 0.5 mg PO QPM RF: 0 glimepiride 1 mg Tablet 1 mg PO QAM RF: 0 indapamide 1.25 mg Tablet 1.25 mg PO QAM RF: 0 vitamin B complex Capsule 1 cap PO UD RF: 0 Hair,Skin and Nails 1 mg iron-66.7 mcg-1,000 mcg Tablet 1 tab PO QAM RF: 0 tetrahydrozoline [Visine] 0.05 % Drops 1 drp OPHTHALMIC (EYE) TID PRN (Reason: Dry Eyes) RF: 0 fluticasone propionate [Flonase Allergy Relief] 50 mcg/actuation [place],Suspension 2 spray INTRANASAL DAILY PRN (Reason: Congestion) RF: 0 fluticasone propion-salmeterol [Advair Diskus] 100-50 mcg/dose Blister With Device 1 puff INHALATION Q12H PRN (Reason: Wheezing) RF: 0 albuterol sulfate 90 mcg/actuation Hfa Aerosol Inhaler 2 puff INHALATION Q6H PRN (Reason: Wheezing) RF: 0 Discontinued hydrocodone-acetaminophen 5-325 mg Tablet 0.5 - 1 tab PO BID PRN (Reason: Pain) RF: 0 Discharge Orders: Discharge Order (Routine); Ordered 12/02/19 Ordered By: Eben Bernal/Other Patient Handouts: Managing Type 2 Diabetes, Managing Diabetes: The A1C Test Admission Data Admit Date/Time: 09/21/20 09:59 Attending Provider: Eben Elizabeth Admit Provider: Eben Elizabeth Primary Care Provider: El Treadwell Other Providers: Jah Manriquez ; Stan Jordan ; David Gu
[2019-12-02] MEDS: ONDANSETRON 4 MG OD TAB PO PRN (12:48)
--- NOTE | 2019-12-02 14:28 | Hospitalist Progress Note ---
Date of Service December 02, 2019 Assessment & Plan (1) Neurogenic claudication due to lumbar spinal stenosis: Status post lumbar decompression fusion L3-L5 by Dr. Elizabeth POD #2 No post op complication Pain control Continue incentive spirometry Hemoglobin stable (2) Anemia: hgb 10.4 pre op 12.4 stable, total blood loss 620ml likely dilutional component (3) Diabetes mellitus, type 2: Last A1c 8.0 11/11/2019 Glycemic pharmacy on board, appreciate their management Outpatient regimen of metformin, Jardiance and glimepiride Continue monitor BS (4) Hypertension: BP stable continue to lisinopril and indapamide Continue monitor BP (5) Seronegative polyarthritis: Follows [facility] rheumatology Continue daily prednisone Receive stress dose steroid preoperatively dexamethasone 8 mg (6) Asthma: continue advair no acute exac (7) DVT prophylaxis: Per primary Follow up: PCP Dr. Treadwell upon discharge Thank you for this consultation. We will follow the patient with you during their hospital stay. You can reach a [facility] via pager @ [phone]. Admission and Anticipated Discharge Date Admission Date: November 29, 2019 Subjective Pt was seen and examined Lying in bed with no distress Pt said that pain is control she said that she feels nauseated after taking the narcotic Denies any chest pain, palpitation, dizziness and SOB Physical Exam Physical Exam: General- No acute distress Head- atraumatic Eyes- PERRL, EOMI, ENT- oropharynx clear Neck- supple, no JVD Lungs- clear to auscultation Heart- regular rhythm; no murmur Abdomen- normal bowel sounds, soft, nontender Extremities- no calf tenderness Neuro- alert, oriented x 3; PERRL, EOMI; no facial palsy; no dysarthria Skin- warm & dry Results & Data Results & Data ([facility]) Vital Signs (Past 12 Hours) Vital Signs Temp Pulse Pulse Resp BP Pulse Ox 12/02/19 13:39 37.1 C 99 H 81 16 142/82 H 97 12/02/19 06:29 37.1 C 81 16 142/82 H 97
== END 2019-12-02 17:01 | disposition home or self-care (01) | DRG 460 ==
LOC: ASU 06:11 → 3E 09:59